=== PATIENT | female | born 1995 | race Hispanic/Latino ===

== ENCOUNTER → 2021-12-23 09:11 | Outpatient (CLI) | payer OTHER, MEDICAID, SELFPAY ==
[2021-12-23 10:26] LABS: Hematocrit 34.2 % (36-46); Hemoglobin 11.8 g/dL (12.0-16.0); Mean Corpuscular HGB Conc 34.5 % (30-36); Mean Corpuscular Hemoglobin 32.2 PG (26-34); Mean Corpuscular Volume 93.3 fL (80-100); Platelet Count 203 X10^3/uL (150-400); Red Blood Cell Count 3.67 X10^6/uL (4.0-5.2); Red Cell Distribution Width 12.5 % (11.6-14.8); White Blood Cell Count 9.6 X10^3/uL (4.5-11.0)
[2021-12-23 10:51] LABS: Glucose Fasting 84 mg/dL (70-100)
[2021-12-23 11:04] LABS: Glucose 1 Hour 87 mg/dL (70-170)
[2021-12-23 11:41] LABS: Glucose Tol Interpretation INTERPRETATION
[2021-12-23 12:15] LABS: Glucose 2 Hour 90 mg/dL (70-140)
[2022-06-20 06:56] LABS: Fractionated Inspired Oxygen 45; HCO3 ABG 19 mmol/L (22-26); Oxygen Saturation ABG 92 % (95-100); PCO2 ABG 33.8 mmHg (35-45); PO2 ABG 66 mmHg (80-100); TCO2 ABG 20 mmol/L (21-31); pH ABG 7.35 (7.35-7.45)
== END ==
PROVIDERS: PCP Internal Medicine; Referring Provider Nurse Practitioner Obstetrics & Gynecology; Visit Provider Nurse Practitioner Obstetrics & Gynecology
DX: Z34.90 Encounter for supervision of normal pregnancy, unspecified, unspecified trimester (principal); Z13.1 Encounter for screening for diabetes mellitus; Z3A.26 26 weeks gestation of pregnancy
CPT/HCPCS: 36415; 36600; 82805; 82951; 82952; 85027

== ENCOUNTER 2022-04-02 08:10 | Inpatient (IN) | payer OTHER, MEDICAID, SELFPAY ==
--- NOTE | 2022-04-02 08:53 | PM.OBHP.1 ---
OB HPI Date/Time Date of admission: 04/02/22 Date Patient Seen: 04/02/22 Time Patient Seen: 08:53 History of Present Condition Chief complaint: OBS OF LABOR : 1 Para: 0 Estimated Date of Delivery: 04/02/22 Estimated Gestational Age (weeks): 39.2 Narrative: MALIA MARCH is a 26 year old female @ [id number] by LMP and early US who presents for evaluation of labor. Awoke at 3am to a large gush of clear fluid which has continued to trickle. Contractions started shortly after and have steadily increased in frequency and intensity, now breathing through strong contractions every 3-6 minutes. +FM. No VB. Uncomplicated PN care w/ CNM. 4-5cm at last CE in office. Desires low intervention . Declines SL IV. Partner and mother, present and supportive. History of Present care: good care, initiated at week # (8), number of visits (10) and pounds weight gain Dating criteria: LMP confirmed by 1st trimester US Ultrasounds: normal mid trimester US Obstetrical complications: none Medical complications: none Preadmission Labs Blood type: O (+) positive -: Antibody screen: negative, GBS status: negative, HBsAG: negative, HIV: negative and RPR/VDLR: negative -: Chlamydia screen: not detected and Gonorrhea screen: not detected -: Rubella: immune and Varicella: immune HCT: 34.2 HCAB: reactive PAP: Normal Cell-free DNA: Negative, female Narrative: 2hr gtt: 84/87/90 Evaluation Evaluation Baseline heart rate: 120 Variability: Moderate (11-25) monitor accelerations: Present Monitor Decelerations: Absent Contraction Frequency (minutes): 2 Uterine Contraction Intensity: Strong/Firm Status: Category l Comments: CE deferred [facility] Surgical History (Updated 04/02/22 @ 10:26 by iMlla Engle CNM) History of repair of ACL Social History (Updated 04/02/22 @ 10:28 by Milla Engle CNM) marital status: unmarried,living together number of children: 0 household members: significant other lives independently: Yes caregiver/support person: No housing: house education level: college occupational status: employed Smoking Status: Never smoker Meds Home Medications and Allergies Home Medications Medication Instructions Recorded Confirmed Type albuterol sulfate 90 mcg/actuation inhalation 04/02/22 History aerosol inhaler Allergies Allergy/AdvReac Type Severity Reaction Status Date / Time cephalexin [From Keflex] AdvReac Verified 04/02/22 09:04 [email or web address] AdvReac Verified 04/02/22 09:05 Review of Systems Review of Systems ROS: Yes All systems reviewed with the patient and are negative except as otherwise documented OB Exam Resp Effort & Inspection: normal respiratory effort Auscultation: clear to auscultation bilaterally Cardio Rate: regular rate Rhythm: regular rhythm Heart Sounds: S1 normal and S2 normal Presentation: vertex Objective Labs Result Diagrams: 04/02/22 09:44 Assessment and Plan Assessment and Plan Assessment and Plan narrative: A: Term nullipara Active labor No indication for GBS prophylaxis Cat I FHR P: Admit, routine orders. May switch to IA. Labor support PRN. Reassess in 4 hours or sooner, PRN.
[2022-04-02 09:01] VITALS: BP 117/71
[2022-04-02 09:47] LABS: COVID19 -Nasal RAPID Negative (Negative)
[2022-04-02 10:02] LABS: Add Manual Diff / Slide Review NO; Basophils Absolute Auto 0 /uL (0-100); Basophils Percent Auto 0.3 % (0-2); Eosinophils Absolute Auto 0 /uL (0-450); Eosinophils Percent Auto 0.1 % (2-4); Hematocrit 36.9 % (36-46); Hemoglobin 12.2 g/dL (12.0-16.0); Lymphocytes Absolute Auto 900 /uL (1100-4500); Lymphocytes Percent Auto 5.6 % (25-40); Mean Corpuscular Hemoglobin 30.2 PG (26-34); Mean Corpuscular Volume 91.5 fL (80-100); Monocytes Absolute Auto 600 /uL (0-900); Monocytes Percent Auto 3.7 % (3-14); Neutrophils Absolute Auto 14800 /uL (1500-7000); Neutrophils Percent Auto 90.3 % (50-75); Platelet Count 204 X10^3/uL (150-400); Red Blood Cell Count 4.03 X10^6/uL (4.0-5.2); Red Cell Distribution Width 13.1 % (11.6-14.8); White Blood Cell Count 16.3 X10^3/uL (4.5-11.0)
--- NOTE | 2022-04-02 16:00 | PM.OBPNLAB ---
Date/Time Date Patient Seen: 04/02/22 Time Patient Seen: 16:00 Pain Control Pain control: other (NO2) Comments: Has been laboring in the tub and in the room in multiple positions. Using NO2 occasionally with moderate relief. Feeling rectal pressure with spontaneous urge to push. Good support, coping well. Pelvic Exam Dilation (cm): 9.5 Effacement (%): 100 station: 0 Amniotic membrane status: Ruptured (AROM forebag occurred at 1415) Contractions Monitor mode: Palpation Pitocin rate (mU/min): 0 Contraction frequency (min): 2 Contraction duration (min): 1 Contraction pattern: Regular Contraction intensity: Strong/Firm Status status: Category l Heart Rate Baseline: 115 Comments: Reassuring by IA Assessment and Plan Assessment: active labor Plan: continuous present management Comments: Continuous labor support. Beginning second stage.
[2022-04-02] MEDS: OXYTOCIN 10 UNIT/ML VIAL IM (17:35)
[2022-04-02] MEDS: LIDOCAINE 1% 20 ML (17:45)
--- NOTE | 2022-04-02 18:05 | P.PCNOB_ITS ---
Events: No Care Labor & Delivery Delivery date: 04/02/22 Intrapartal Events: None Cervical ripening method: none Induction method: none Delivery augmentation: rupture of membranes (AROM forebag) Delivery monitor: external FHT Route of delivery: Episiotomy description: None L&D Laceration Description: Perineal - 1st Degree Delivery repair: chromic (3.0) Quantitative Blood Loss: 100 Anesthesia Type: Other (NO2) Narrative: Farheen moved to the toilet and began to feel a stronger urge to push. Pushed in bed on her right then left side. FHR monitor continuously hand held by RN throughout most of second stage. NSVB of a vigorous baby boy in CESAR position, sommersaulted through a double tight nuchal cord, then unraveled a double body cord. was placed on maternal abdomen for drying and skin to skin. 10 units of pitocin was given IM for AMTSL. After cessation of pulsation, the cord was double clamped by CNM and cut by FOB. Cord blood sample was collected. Gentle cord traction and maternal push led to spontaneous, Schultze delivery of an apparently intact placenta, membranes and 3VC. Fundus massaged firm and bleeding light. Inspection revealed a 1st degree perineal laceration that was repaired with 3.0 Chromic, under 1% lidocaine local, in the usual fashion for good approximation and hemostasis. QBL 100mL. Both mother and baby stable and skin to skin as I left the room. [place] Baby 1: gender: Male Presentation: vertex Position: Right Occiput Anterior Placenta delivery description: Spontaneous Cord Vessel Description: 3 Vessels, Nuchal Cord (x2) and Around Body x2 score (1 min): 7 score (5 min): 8 weight: 3.372 kg Plan for aftercare: Routine care
[2022-04-02] MEDS: IBUPROFEN 600 MG TABLET PO (18:50)
[2022-04-02] MEDS: ACETAMINOPHEN 325 MG TABLET 650 MG PO (18:50)
[2022-04-02] MEDS: DERMOPLAST SPRAY 20% 60 ML 1 SPRAY TOP (19:08)
[2022-04-02] MEDS: OXYCODONE IR 5 MG TABLET PO (20:26)
[2022-04-03] MEDS: IBUPROFEN 600 MG TABLET PO ×3 (00:40→12:49)
[2022-04-03] MEDS: ACETAMINOPHEN 325 MG TABLET 650 MG PO ×3 (00:40→12:48)
[2022-04-03] MEDS: OXYCODONE IR 5 MG TABLET PO (03:09)
[2022-04-03] MEDS: DOCUSATE 100 MG CAPSULE PO (08:53)
--- NOTE | 2022-04-03 14:43 | PM.OBDS.1 ---
Discharge Providers Provider Date of admission: 04/02/22 08:10 Discharge Date: 04/03/22 Primary care physician: JULIÁN Garcia Consults: 04/03/22 17:59 Consult to Inspector Final Assembly Mechanical Routine Comment: Discharge provider: Milla Engle CNM Summary Hospital Course Date Patient Seen: 04/03/22 Time Patient Seen: 15:05 Diagnoses: O80.0 Hospital Course: PPD1 s/p NSVB with no lacerations. Voiding, ambulating and independently. Tolerating a general diet. Pain well controlled with PO medication. Vaginal bleeding is light, without clots. Partner remains present and supportive. They are both eager for discharge to home. Peripartum Data Infant Delivery Method: Natural Vaginal Laceration Description: None Episiotomy description: None [place] 1: Gender: Male Disposition of : home Discharge Diagnosis (1) Encounter for full-term uncomplicated delivery: Start Date: 04/02/22 Start Time: 17:32 Status: Acute Status at Discharge Cognitive/behavioral status at discharge: oriented and calm Functional status at discharge: independent ambulation Overall status at discharge: patient is progressing back to baseline Time Spent with Patient Time attestation: Total time spent providing and/or coordinating discharge services: Specific discharge activities: discharge teaching Objective Labs Result Diagrams: 04/02/22 09:44 Exam Vital Signs (past 8 hours): BP 112/62, HR 76bp, RR 16, T 97.5F Other: Fundus firm @ u-1, lochia scant, perineum intact Discharge Plan Discharge Plan Patient Disposition: Home Discharge orders & Medications Prescriptions: New ibuprofen 600 mg Tablet 600 mg PO Q6HR PRN (Reason: Pain, Mild (1-3)) 14 Days Qty: 60 0RF Continued albuterol sulfate [ProAir HFA] 90 mcg/actuation HFA aerosol inhaler 1 puff inhalation PRN PRN (Reason: Wheezing) Label Comments: inhale 2 puffs by mouth every 4 to 6 hours if needed FOR ASTHMA Follow up/Referrals: Jaimee Pool ARNP [Primary Care Provider] - Milla Engle CNM [[facility]] - (Follow-up 04/16/22 @ 1245 by Telehealth Follow-up 05/14/22 @ 1245 in office) Diet/Activity/Treatments Diet: Diet as Tolerated and Regular Activity: pelvic rest x 6 weeks Skin/Wound/Dressing Care Report to your healthcare provider any signs of infection, such as:: chills, fever, increased pain, unusual drainage and unusual redness Visit Report/Discharge Packet Instructions: DI for Depression Discharge Data Primary Care Provider: Jaimee Pool Attending Provider: Milla Engle
[2022-04-03 15:23] VITALS: BP 112/62; PULSE 79; RESP 18; TEMP 36.4
== END 2022-04-03 16:48 | disposition home or self-care (01) | DRG 560 ==
PROVIDERS: Admitting Provider Nurse Practitioner Obstetrics & Gynecology; PCP Internal Medicine; Referring Provider Nurse Practitioner Obstetrics & Gynecology; Visit Provider Nurse Practitioner Obstetrics & Gynecology
DX: O70.0 First degree perineal laceration during delivery (principal); Z3A.39 39 weeks gestation of pregnancy; Z37.0 Single live birth; O69.1XX0 Labor and delivery complicated by cord around neck, with compression, not applicable or unspecified; Z20.822 Contact with and (suspected) exposure to COVID-19
CPT/HCPCS: 36415; 59050; 85025; 86850; 86900; 86901; 87635; C9803; G0378; G0379; J2590

== ENCOUNTER 2022-06-19 21:55 | Observation (INO) | payer OTHER, MEDICAID, SELFPAY ==
[2022-06-19 22:04] VITALS: BP 112/75; PULSE 108; RESP 17; TEMP 37.1; O2SAT 95; BMI 28.3
--- NOTE | 2022-06-19 22:10 | PC.NURSE ---
RT to bedside - assessment performed
[2022-06-19] MEDS: ALBUTEROL/IPRATROPIUM 3 ML AMPUL INH ×2 (22:15→22:21)
[2022-06-19 22:37] VITALS: PULSE 116; O2SAT 97
--- NOTE | 2022-06-19 22:55 | PC.NURSE ---
RT at bedside
[2022-06-19] MEDS: ALBUTEROL 2.5 MG/3 ML NEB (ADULT) INH ×2 (22:58→23:31)
[2022-06-19 22:59] VITALS: PULSE 89; O2SAT 90
[2022-06-19 23:00] VITALS: BP 120/76
--- NOTE | 2022-06-19 23:00 | PC.NURSE ---
IV started with lab draw - tolerated well
--- NOTE | 2022-06-19 23:05 | PC.NURSE ---
respiratory panel swab performed to bilateral nares
[2022-06-19 23:06] VITALS: PULSE 119; O2SAT 81
[2022-06-19] MEDS: methylPREDNISolone 125 MG/2 ML VIAL IV (23:15)
[2022-06-19] MEDS: SODIUM CHLORIDE 0.9% 1,000 ML 1000 ML IV (23:15)
[2022-06-19 23:21] LABS: Add Manual Diff / Slide Review NO; Basophils Absolute Auto 0 /uL (0-100); Basophils Percent Auto 0.4 % (0-2); Eosinophils Absolute Auto 400 /uL (0-450); Eosinophils Percent Auto 5.3 % (2-4); Hematocrit 38.6 % (36-46); Lymphocytes Absolute Auto 1300 /uL (1100-4500); Lymphocytes Percent Auto 16.4 % (25-40); Mean Corpuscular HGB Conc 33.8 % (30-36); Mean Corpuscular Hemoglobin 30.6 PG (26-34); Mean Corpuscular Volume 90.5 fL (80-100); Monocytes Absolute Auto 800 /uL (0-900); Monocytes Percent Auto 10.1 % (3-14); Neutrophils Absolute Auto 5300 /uL (1500-7000); Neutrophils Percent Auto 67.8 % (50-75); Platelet Count 266 X10^3/uL (150-400); Red Blood Cell Count 4.26 X10^6/uL (4.0-5.2); Red Cell Distribution Width 13.5 % (11.6-14.8); White Blood Cell Count 7.8 X10^3/uL (4.5-11.0)
[2022-06-19 23:30] VITALS: BP 114/80; PULSE 107; O2SAT 99
--- NOTE | 2022-06-19 23:30 | PC.NURSE ---
RT at bedside
[2022-06-19 23:31] LABS: Alanine Aminotransferase 36 IU/L (<35); Albumin 4.6 g/dL (3.5-5.0); Albumin Globulin Ratio 1.2 (1.0-2.8); Alkaline Phosphatase 65 U/L (38-126); Aspartate Aminotransferase 28 IU/L (14-36); BUN Creatinine Ratio 14.7 (6-22); Bilirubin Total 0.5 mg/dL (0.2-1.3); Blood Urea Nitrogen 10 mg/dL (7-17); Calcium 9.2 mg/dL (8.4-10.2); Carbon Dioxide 24 mmol/L (22-32); Chloride 105 mmol/L (98-107); Estimated Glomerular Filt Rate > 60 mL/min (>60); Globulin 3.8 g/dL (1.7-4.1); Glucose 137 mg/dL (70-100); HEMOLYSIS 39 (0-50); Potassium 3.4 mmol/L (3.4-5.1); Sodium 140 mmol/L (137-145); Total Protein 8.4 g/dL (6.3-8.2)
[2022-06-19 23:31] LABS: COVID19 -Nasal RAPID Negative (Negative)
[2022-06-20] VITALS (58 sets, daily range): BP systolic 101–159; BP diastolic 60–103; PULSE 89–136; RESP 12–58; TEMP 36.5–36.9; O2SAT 74–100; BMI 28.3
--- NOTE | 2022-06-20 | PC.NURSE ---
Resting quietly - calm - respirations equal and unlabored bilaterally - PWD - alert and oriented - speaking in full clear sentences
--- NOTE | 2022-06-20 00:34 | PC.NURSE ---
Ambulatory to the bathroom with steady gait
--- NOTE | 2022-06-20 00:37 | PC.NURSE ---
Pt returns to the room and starts crying - starts to become panicky and states that she needs air - audible wheezing noted - coached to sit and try pursed lip breathing - helps to calm patient - O2 sat improves from 92-98% on room air - RT called for evaluation
--- NOTE | 2022-06-20 00:51 | DI.RAD.S_ITS ---
PROCEDURE: XR CHEST 1V INDICATIONS: short of breath TECHNIQUE: One view of the chest was acquired. COMPARISON: [facility], , XR CHEST 1 VIEW, 12/06/2020, 22:15. FINDINGS: Surgical changes and devices: None. Lungs and pleura: Lungs are clear. No pleural effusions or pneumothorax. Mediastinum: Mediastinal contours appear normal. Heart size is normal. Bones and chest wall: No suspicious bony lesions. Overlying soft tissues appear unremarkable. IMPRESSION: Normal for age, source of current shortness of breath symptoms is not seen. Dictated by: Mal Santillan M.D. on 06/20/2022 at 1:08 Approved by: Mal Santillan M.D. on 06/20/2022 at 1:09
--- NOTE | 2022-06-20 00:55 | PC.NURSE ---
XR at bedside
--- NOTE | 2022-06-20 01:30 | PC.NURSE ---
Resting quietly with family at bedside - nursing baby without concern - no needs voiced - respirations equal and unlabored bilaterally
[2022-06-20 01:36] LABS: Influenza A - CEPHEID Flu A NEGATIVE (NEGATIVE); Influenza B - CEPHEID Flu B NEGATIVE (NEGATIVE); Respiratory Syncytial Virus Negative (Negative)
[2022-06-20 01:41] LABS: COVID-19 CEPHEID 4-PLEX PCR Negative (Negative)
--- NOTE | 2022-06-20 02:00 | PC.NURSE ---
Family approaches the RN and states that the patient feels as though she is having increasing difficulty breathing again - MD aware
--- NOTE | 2022-06-20 02:01 | ED.SOB ---
HPI - SOB/Dyspnea General Chief Complaint: Shortness of Breath/Dyspnea Stated Complaint: Asthma Time Seen by Provider: 06/19/22 22:14 Source: patient Mode of arrival: Ambulatory History of Present Illness HPI Narrative: Patient is a 27-year-old female history of asthma, no prior intubations presenting today with increasing shortness of breath. She said she was doing okay yesterday she took 2 albuterol nebulizers at prior to arrival still feels like she is tight and short of breath. Denies fever chills or cough. Currently 2 months and . Related Data Home Medications Medication Instructions Recorded Confirmed albuterol sulfate 90 mcg/actuation 1 puff inhalation PRN PRN Wheezing 04/02/22 04/03/22 aerosol inhaler (ProAir HFA) Allergies Allergy/AdvReac Type Severity Reaction Status Date / Time cephalexin [From Keflex] AdvReac Verified 06/19/22 22:04 kiwi AdvReac Verified 06/19/22 22:04 Review of Systems Review of Systems Narrative: GENERAL: Denies chills, fatigue, malaise, fever, sweats, travel HEENT: Denies sinus pain, ear pain, sore throat, difficulty swallowing, neck pain RESPIRATORY: See HPI CARDIOVASCULAR: Denies chest pain, palpitations, orthopnea, edema GASTROINTESTINAL: Denies nausea, vomiting, abdominal pain, diarrhea, constipation, melena. : Denies dysuria, frequency, incontinence, hematuria, urinary retention, flank pain. MUSCULOSKELETAL: Denies weakness, joint pain, or bony pain SKIN: No rash, no erythema, no pruritus NEUROLOGIC: Denies weakness, dizziness, headache, numbness, change in speech, confusion PSYCHIATRIC: No concerning psychosocial issues. 12 point review of systems is negative except for those stated above and HPI Patient History Surgical History History of repair of ACL Social History marital status: unmarried,living together number of children: 0 household members: significant other lives independently: Yes caregiver/support person: No housing: house education level: college occupational status: employed Smoking Status: Never smoker Smoking Status: Never smoker Substance Use Type: does not use Exam Initial Vital Signs Initial Vital Signs: Vital Signs Temperature 98.7 F 06/19/22 22:04 Pulse Rate 108 H 06/19/22 22:04 Respiratory Rate 17 06/19/22 22:04 Blood Pressure 112/75 06/19/22 22:04 Pulse Oximetry 95 06/19/22 22:04 Oxygen Delivery Method 06/19/22 22:04 GENERAL: Alert 27-year-old female and in no acute distress. HEENT: Head atraumatic,EOMI, pupils reactive, face symmetric, moist mucous membranes CARDIOVASCULAR: Regular rate and rhythm without murmurs, rubs or gallops. RESPIRATORY: Speaks in full sentences wheezing bilaterally ABDOMEN: Soft, nontender. Normoactive bowel sounds all 4 quadrants. No guarding or rebound EXTREMITIES: Normal range of motion, no clubbing or edema. Neurovascularly intact NEUROLOGICAL: Alert and oriented x4.Normal gait and speech. SKIN: Warm, dry, no laceration, no petechiae, no rashes or lesions. Course Orders Ordered: ED Orders 06/19/22 23:00 CBC Auto Diff [Complete Blood Count AUTO DIFF] Stat CMP [Comprehensive Metabolic Panel] Stat 06/19/22 23:05 Covid-19 + FLU A/B + RSV - PCR Stat 06/20/22 00:51 Chest [XR chest 1V] Stat 06/20/22 02:48 BNP [NT-proBNP (BNP-Adult 18+)] Stat Magnesium Stat Procalcitonin Stat Troponin & CK Cardiac Panel Stat 06/20/22 04:05 D Dimer Stat 06/20/22 04:24 ABG [Arterial Blood Gas] Stat 06/20/22 04:45 Test Serum,Qual Stat 06/20/22 04:46 CT angio chest PE protocol Stat Discontinued Medications Albuterol (Albuterol 2.5 Mg/3 Ml Neb (Adult)) 2.5 mg INH NOW ONE Stop: 06/19/22 22:58 Last Admin: 06/19/22 22:58 Dose: 2.5 mg Documented By: KAN Albuterol (Albuterol 2.5 Mg/3 Ml Neb (Adult)) 2.5 mg INH NOW ONE Stop: 06/19/22 23:31 Last Admin: 06/19/22 23:31 Dose: 2.5 mg Documented By: KAN Albuterol (Albuterol 2.5 Mg/3 Ml Neb (Adult)) 20 mg INH NOW ONE Stop: 06/20/22 02:02 Last Admin: 06/20/22 02:25 Dose: 20 mg Documented By: KAN Albuterol (Albuterol 2.5 Mg/3 Ml Neb (Adult)) 2.5 mg INH NOW ONE Stop: 06/20/22 06:32 Last Admin: 06/20/22 06:35 Dose: 2.5 mg Documented By: KAN Albuterol/Ipratropium (Albuterol/Ipratropium 3 Ml Ampul) 3 ml INH NOW ONE Stop: 06/19/22 22:13 Last Admin: 06/19/22 22:15 Dose: 3 ml Documented By: AKN Albuterol/Ipratropium (Albuterol/Ipratropium 3 Ml Ampul) 3 ml INH NOW ONE Stop: 06/19/22 22:19 Last Admin: 06/19/22 22:21 Dose: 3 ml Documented By: KAN Sodium Chloride (Normal Saline 0.9%) 1,000 mls @ 1,000 mls/hr IV BOLUS ONE Stop: 06/20/22 00:02 Last Infusion: 06/20/22 00:15 Dose: 0 mls/hr Documented By: Admin: 06/19/22 23:15 Dose: 1,000 mls/hr Documented By: MAREK Sodium Chloride (Normal Saline 0.9%) 1,000 mls @ 1,000 mls/hr IV BOLUS ONE Stop: 06/20/22 03:00 Last Infusion: 06/20/22 03:46 Dose: 0 mls/hr Documented By: Admin: 06/20/22 02:46 Dose: 1,000 mls/hr Documented By: MAREK Magnesium Sulfate (Magnesium Sulfate) 2 gm in 50 mls @ 150 mls/hr IV NOW ONE Stop: 06/20/22 04:33 Last Infusion: 06/20/22 05:05 Dose: 0 mls/hr Documented By: MAREK Co-signed By: CHERYL Admin: 06/20/22 04:29 Dose: 150 mls/hr Documented By: MAREK Co-signed By: CHERYL Lorazepam (Lorazepam 2 Mg/Ml Inj) 0.5 mg IV NOW ONE Stop: 06/20/22 03:50 Last Admin: 06/20/22 03:55 Dose: 0.5 mg Documented By: MAREK Methylprednisolone (Methylprednisolone 125 Mg/2 Ml Vial) 125 mg IV NOW ONE Stop: 06/19/22 23:04 Last Admin: 06/19/22 23:15 Dose: 125 mg Documented By: MAREK Vital Signs Vital signs: Vital Signs - 8 hr 06/19/22 23:30 06/19/22 23:30 06/20/22 00:00 Pulse Rate 107 H 116 H Blood Pressure 114/80 Pulse Oximetry 99 94 Oxygen Delivery Method Oxygen Flow Rate Fraction of Inspired Oxygen 06/20/22 00:30 06/20/22 01:00 06/20/22 01:30 Pulse Rate 89 118 H Blood Pressure Pulse Oximetry 95 74 L 95 Oxygen Delivery Method Oxygen Flow Rate Fraction of Inspired Oxygen 06/20/22 02:00 06/20/22 02:30 06/20/22 05:14 Pulse Rate 116 H 118 H Blood Pressure Pulse Oximetry 91 98 97 Oxygen Delivery Method High Flow Nasal Cannula Oxygen Flow Rate 50 Fraction of Inspired Oxygen 75 06/20/22 03:00 06/20/22 03:30 06/20/22 04:00 Pulse Rate 136 H 124 H 124 H Blood Pressure Pulse Oximetry 99 94 91 Oxygen Delivery Method Oxygen Flow Rate Fraction of Inspired Oxygen 06/20/22 04:30 06/20/22 05:06 06/20/22 05:10 Pulse Rate 104 H 132 H Blood Pressure 135/65 Pulse Oximetry 93 91 Oxygen Delivery Method Oxygen Flow Rate Fraction of Inspired Oxygen 06/20/22 05:10 06/20/22 05:30 06/20/22 05:30 Pulse Rate 123 H 125 H Blood Pressure 145/76 H Pulse Oximetry 96 97 Oxygen Delivery Method Oxygen Flow Rate Fraction of Inspired Oxygen 06/20/22 06:00 06/20/22 06:01 06/20/22 06:01 Pulse Rate 124 H 118 H Blood Pressure 130/103 H Pulse Oximetry 98 97 Oxygen Delivery Method Oxygen Flow Rate Fraction of Inspired Oxygen 06/20/22 06:30 06/20/22 06:30 Pulse Rate 125 H Blood Pressure 143/84 H Pulse Oximetry 97 Oxygen Delivery Method Oxygen Flow Rate Fraction of Inspired Oxygen MDM - SOB/Dyspnea Lab Data Result diagrams: 06/19/22 23:00 06/19/22 23:00 Labs: Lab Results 06/19/22 06/19/22 06/19/22 Range/Units 22:10 23:00 23:00 WBC 7.8 (4.5-11.0) X10^3/uL RBC 4.26 (4.0-5.2) X10^6/uL Hgb 13.0 (12.0-16.0) g/dL Hct 38.6 (36-46) % MCV 90.5 (80-100) fL MCH 30.6 (26-34) PG MCHC 33.8 (30-36) % RDW 13.5 (11.6-14.8) % Plt Count 266 (150-400) X10^3/uL Neut % (Auto) 67.8 (50-75) % Lymph % (Auto) 16.4 L (25-40) % [place] % (Auto) 10.1 (3-14) % Eos % (Auto) 5.3 H (2-4) % Baso % (Auto) 0.4 (0-2) % Neut # (Auto) 5300 (0647-3233) /uL Lymph # (Auto) 1300 (0179-9272) /uL [place] # (Auto) 800 (0-900) /uL Eos # (Auto) 400 (0-450) /uL Baso # (Auto) 0 (0-100) /uL D-Dimer (<500) ng/ml Sodium 140 (137-145) mmol/L Potassium 3.4 (3.4-5.1) mmol/L Chloride 105 (98-107) mmol/L Carbon Dioxide 24 (22-32) mmol/L BUN 10 (7-17) mg/dL Creatinine 0.68 (0.52-1.04) mg/dL Estimated GFR > 60 (>60) mL/min BUN/Creatinine Ratio 14.7 (6-22) Glucose 137 H (70-100) mg/dL Calcium 9.2 (8.4-10.2) mg/dL Magnesium (1.6-2.3) mg/dL Total Bilirubin 0.5 (0.2-1.3) mg/dL AST 28 (14-36) IU/L ALT 36 H (<35) IU/L Alkaline Phosphatase 65 (38-126) U/L Total Creatine Kinase (30-135) U/L CK-MB (CK-2) (<2.37) ng/mL CK-MB (CK-2) Rel Index (1.5-5.0) % Troponin I (0.01-0.034) ng/mL NT-Pro-B Natriuret Pep (<125) pg/mL Total Protein 8.4 H (6.3-8.2) g/dL Albumin 4.6 (3.5-5.0) g/dL Globulin 3.8 (1.7-4.1) g/dL Albumin/Globulin Ratio 1.2 (1.0-2.8) Procalcitonin (<0.5) ng/mL Serum , Qual (Negative) SARS-CoV-2 (PCR) Negative (Negative) Influenza A (RT-PCR) (NEGATIVE) Influenza B (RT-PCR) (NEGATIVE) RSV (PCR) (Negative) 06/19/22 06/19/22 06/20/22 Range/Units 23:00 23:05 02:48 WBC (4.5-11.0) X10^3/uL RBC (4.0-5.2) X10^6/uL Hgb (12.0-16.0) g/dL Hct (36-46) % MCV (80-100) fL MCH (26-34) PG MCHC (30-36) % RDW (11.6-14.8) % Plt Count (150-400) X10^3/uL Neut % (Auto) (50-75) % Lymph % (Auto) (25-40) % [place] % (Auto) (3-14) % Eos % (Auto) (2-4) % Baso % (Auto) (0-2) % Neut # (Auto) (1891-8126) /uL Lymph # (Auto) (3835-9194) /uL [place] # (Auto) (0-900) /uL Eos # (Auto) (0-450) /uL Baso # (Auto) (0-100) /uL D-Dimer (<500) ng/ml Sodium (137-145) mmol/L Potassium (3.4-5.1) mmol/L Chloride (98-107) mmol/L Carbon Dioxide (22-32) mmol/L BUN (7-17) mg/dL Creatinine (0.52-1.04) mg/dL Estimated GFR (>60) mL/min BUN/Creatinine Ratio (6-22) Glucose (70-100) mg/dL Calcium (8.4-10.2) mg/dL Magnesium (1.6-2.3) mg/dL Total Bilirubin (0.2-1.3) mg/dL AST (14-36) IU/L ALT (<35) IU/L Alkaline Phosphatase (38-126) U/L Total Creatine Kinase 113 (30-135) U/L CK-MB (CK-2) 0.93 (<2.37) ng/mL CK-MB (CK-2) Rel Index 0.8 L (1.5-5.0) % Troponin I < 0.012 (0.01-0.034) ng/mL NT-Pro-B Natriuret Pep 26 (<125) pg/mL Total Protein (6.3-8.2) g/dL Albumin (3.5-5.0) g/dL Globulin (1.7-4.1) g/dL Albumin/Globulin Ratio (1.0-2.8) Procalcitonin (<0.5) ng/mL Serum , Qual Negative (Negative) SARS-CoV-2 (PCR) Negative (Negative) Influenza A (RT-PCR) Flu a negative (NEGATIVE) Influenza B (RT-PCR) Flu b negative (NEGATIVE) RSV (PCR) Negative (Negative) 06/20/22 06/20/22 06/20/22 Range/Units 02:48 02:48 04:05 WBC (4.5-11.0) X10^3/uL RBC (4.0-5.2) X10^6/uL Hgb (12.0-16.0) g/dL Hct (36-46) % MCV (80-100) fL MCH (26-34) PG MCHC (30-36) % RDW (11.6-14.8) % Plt Count (150-400) X10^3/uL Neut % (Auto) (50-75) % Lymph % (Auto) (25-40) % [place] % (Auto) (3-14) % Eos % (Auto) (2-4) % Baso % (Auto) (0-2) % Neut # (Auto) (9318-5093) /uL Lymph # (Auto) (4429-8461) /uL [place] # (Auto) (0-900) /uL Eos # (Auto) (0-450) /uL Baso # (Auto) (0-100) /uL D-Dimer 964 H (<500) ng/ml Sodium (137-145) mmol/L Potassium (3.4-5.1) mmol/L Chloride (98-107) mmol/L Carbon Dioxide (22-32) mmol/L BUN (7-17) mg/dL Creatinine (0.52-1.04) mg/dL Estimated GFR (>60) mL/min BUN/Creatinine Ratio (6-22) Glucose (70-100) mg/dL Calcium (8.4-10.2) mg/dL Magnesium 1.8 (1.6-2.3) mg/dL Total Bilirubin (0.2-1.3) mg/dL AST (14-36) IU/L ALT (<35) IU/L Alkaline Phosphatase (38-126) U/L Total Creatine Kinase (30-135) U/L CK-MB (CK-2) (<2.37) ng/mL CK-MB (CK-2) Rel Index (1.5-5.0) % Troponin I (0.01-0.034) ng/mL NT-Pro-B Natriuret Pep (<125) pg/mL Total Protein (6.3-8.2) g/dL Albumin (3.5-5.0) g/dL Globulin (1.7-4.1) g/dL Albumin/Globulin Ratio (1.0-2.8) Procalcitonin 0.04 (<0.5) ng/mL Serum , Qual (Negative) SARS-CoV-2 (PCR) (Negative) Influenza A (RT-PCR) (NEGATIVE) Influenza B (RT-PCR) (NEGATIVE) RSV (PCR) (Negative) Imaging Data Chest x-ray: Radiologist's Impression: Signed Patient: Farheen Cardenas MR#: [id number] : 1995 Acct:[id number] Age/Sex: 27 / F Date of Service: 06/20/22 Loc: ED Accession Number: [id number] ?? Procedure: XR chest 1V Ordering Provider: Fatou Ramires D.O. PROCEDURE:? XR CHEST 1V ? INDICATIONS:? short of breath ? TECHNIQUE:? One view of the chest was acquired.? ? COMPARISON:? [facility], CR, XR CHEST 1 VIEW, 12/06/2020, 22:15. ? FINDINGS:? ? Surgical changes and devices:? None.? ? Lungs and pleura:? Lungs are clear.? No pleural effusions or pneumothorax.? ? Mediastinum:? Mediastinal contours appear normal.? Heart size is normal.? ? Bones and chest wall:? No suspicious bony lesions.? Overlying soft tissues appear unremarkable.? ? IMPRESSION:? Normal for age, source of current shortness of breath symptoms is not seen. ? ? Dictated by: Mal Santillan M.D. on 06/20/2022 at 1:08 ? ? CT scan - chest: Radiologist's Impression: Pulmonary report unremarkable CT angiogram no acute intrathoracic abnormality identified MDM Narrative Medical decision making narrative: Patient initially responded to albuterol still mildly tachy and wheezing but moving air. She appears the restroom she got very wheezy short of breath and felt tight again. She is given full 20 mg nebulizer of albuterol she had very clear lungs tachycardic which is to be expected after albuterol. She got up to use the restroom again and again felt extremely tight short of breath anxious. Will sitting in bed her oxygen decreased the 85% on room air. It did not significantly improve in till she was put on 5-6 L of nasal cannula. D-dimer is pending. Troponin BNP negative chest x-ray is negative. CT scan is negative for PE. She is placed on high-flow. Started having some wheezing again. Dr. Chand updated patient's symptoms test results and accept patient to the ICU. May require BiPAP Discharge Plan Departure Patient Disposition: Admitted As Inpatient Clinical Impression: Asthma exacerbation Admit Date/Time: 06/20/22 06:35 Admit Provider: Emily Brown
--- NOTE | 2022-06-20 02:20 | PC.NURSE ---
RT at bedside
[2022-06-20] MEDS: ALBUTEROL 2.5 MG/3 ML NEB (ADULT) 20 MG INH ×2 (02:25→11:20)
--- NOTE | 2022-06-20 02:45 | PC.NURSE ---
lab draw performed at this time - tolerated well
[2022-06-20] MEDS: SODIUM CHLORIDE 0.9% 1,000 ML 1000 ML IV (02:46)
--- NOTE | 2022-06-20 02:53 | PC.NURSE ---
Ambulatory to the bathroom with steady gait - states that she feels as though her breathing gets much worse after she moves around - reassured
[2022-06-20 03:15] LABS: Creatine Kinase 113 U/L (30-135)
[2022-06-20 03:28] LABS: NT-proBNP (BNP-Adult 18+) 26 pg/mL (<125); Troponin I < 0.012 ng/mL (0.01-0.034)
[2022-06-20 03:30] LABS: CKMB % Relative Index 0.8 % (1.5-5.0); Creatine Kinase MB 0.93 ng/mL (<2.37)
--- NOTE | 2022-06-20 03:30 | PC.NURSE ---
Pt states that she doesn't feel well - increased work of breathing noted - states that she knows her body and something isn't right - appears anxious - O2 sats on room air = 93% - MD aware of pt's status
[2022-06-20] MEDS: LORazepam 2 MG/ML INJ 0.5 MG IV ×3 (03:55→23:11)
--- NOTE | 2022-06-20 03:55 | PC.NURSE ---
Given ativan at this time - discussed with patient - states that she would like to try it as she has been breathing hard for awhile and is getting tired - also hoping to help with some of the anxiety
--- NOTE | 2022-06-20 04:10 | PC.NURSE ---
pt noted to have increased work of breathing - difficulty saying words - O2 sats decrease to 87% on room air - MD at bedside - pt placed on 2L NC - no improvement noted - O2 sat remains at 88%
--- NOTE | 2022-06-20 04:20 | PC.NURSE ---
O2 increased in increments to 6L NC - encouraged to purse lip breathe with slow inhalations and exhalations - able to follow and slow breathing with continued coaching - returns to rapid shallow breathing if not coached. O2 sat not improving past 92% on the 6L
[2022-06-20 04:28] LABS: Magnesium 1.8 mg/dL (1.6-2.3)
[2022-06-20] MEDS: MAGNESIUM SULFATE 2 GM/50 ML PIGGYBACK IV (04:29)
--- NOTE | 2022-06-20 04:35 | PC.NURSE ---
RT at bedside for ABG - tolerated well - family to go home for the evening
--- NOTE | 2022-06-20 04:40 | PC.NURSE ---
placed on high flow O2 at this time by RT - having a difficult time tolerating it - states that it makes her feel as though she is unable to breathe - encouraged to keep the O2 on as it will help
--- NOTE | 2022-06-20 04:45 | PC.NURSE ---
To CT via W/C with RN - pt using NRB - color improves to pink and breathing slowed at this time
--- NOTE | 2022-06-20 04:46 | DI.CT.S_ITS ---
PROCEDURE: CT ANGIO CHEST PE PROTOCOL INDICATIONS: hypoxic TECHNIQUE: After the administration of intravenous contrast, 2 mm thick sections acquired from the pulmonary apices to the posterior costophrenic angles. 3-dimensional maximum intensity projection (MIP) coronal and sagittal reformats were then acquired through the thorax. For radiation dose reduction, the following was used: automated exposure control, adjustment of mA and/or kV according to patient size. COMPARISON: None. FINDINGS: Image quality: Excellent. Pulmonary arteries: Pulmonary arteries are normal in size, and demonstrate no intraluminal filling defects to suggest central pulmonary embolism. Lungs and pleura: Lungs are clear. No pleural effusions or pneumothorax. Central airways are patent. Bilateral upper and lower bronchial wall thickening with scattered areas partial airway occlusion. Mediastinum: Heart size is normal, without pericardial effusion. No mediastinal or hilar adenopathy. Thoracic aorta is normal in caliber and enhancement. Esophagus is normal in caliber, without hiatal hernia. Bones and chest wall: No suspicious bony lesions. Ribs and thoracic spine appear intact throughout. Thyroid gland is normal. No axillary or supraclavicular adenopathy. Abdomen: Visualized upper abdominal solid organs appear normal in the early arterial phase of enhancement. IMPRESSION: 1. No pulmonary embolus. 2. Bronchial wall thickening suggesting bronchitis or asthma. 3. Final interpretation is concordant with preliminary report. Dictated by: Marylin Hernandez M.D. on 06/20/2022 at 6:44 Approved by: Marylin Hernandez M.D. on 06/20/2022 at 6:49
[2022-06-20 04:51] LABS: D Dimer 964 ng/ml (<500)
[2022-06-20 04:57] LABS: Pregnancy Test Serum,Qual Negative (Negative)
--- NOTE | 2022-06-20 05:00 | PC.NURSE ---
Returns to the ER room via W/C with RN from CT - breathing improving - placed back on high flow - O2 sats increased to 97%
--- NOTE | 2022-06-20 05:20 | PC.NURSE ---
MD at bedside - pt much calmer and work of breathing improved - PWD
--- NOTE | 2022-06-20 05:30 | PC.NURSE ---
Continues to improve on high flow - tolerating well at this time
--- NOTE | 2022-06-20 05:44 | PC.NURSE ---
Awaiting admission - continues to improve - appears more comfortable and relaxed
--- NOTE | 2022-06-20 06:00 | PC.NURSE ---
MD at bedside to speak with patient and Mom - updated on status
--- NOTE | 2022-06-20 06:30 | PC.NURSE ---
RT at bedside - Mom present
[2022-06-20] MEDS: ALBUTEROL 2.5 MG/3 ML NEB (ADULT) INH ×6 (06:35→23:04)
[2022-06-20 07:05] LABS: Procalcitonin 0.04 ng/mL (<0.5)
--- NOTE | 2022-06-20 07:05 | PC.NURSE ---
Report called to OLGA Liu - pt to be transferred after [id number]
--- NOTE | 2022-06-20 07:16 | PC.NURSE ---
Report to OLGA Greer to take patient to the floor after shift change
--- NOTE | 2022-06-20 07:58 | PC.NURSE ---
pt c/o worsening SOB. states having difficulty expiring air. pt on High flow O2. given a 100% flush. posterior upper lobes sound wheezy however pt is moving air. 98% with good waveworm. HR remains 120's after multiple nebulizers. Pt pending transfer to ICU shortly.
--- NOTE | 2022-06-20 08:17 | PC.NURSE ---
pt receiving neb treatment. transferred upstairs with OLGA Greer and RT Ike to ICU. remains 98-100% on treatment. will return to [facility] post treatment.
--- NOTE | 2022-06-20 08:47 | RT ---
PT TRANSFERRED FROM ED TO ICU ON NRB. PT PLACED BACK ON HHFNC. SETTINGS ADJUSTED TO PT'S NEED. TELE-DOC UPDATED. PT RECEIVED NEB BY RN IN ED PRIOR TO TRANSFER.
--- NOTE | 2022-06-20 09:09 | PM.HP.1 ---
History of Present Illness History of Present Illness Date Patient Seen: 06/20/22 Chief complaint: Asthma Narrative: Pt is a 27yo woman with asthma, 2 months after uncomplicated , who presented with wheezing and SOB. The pt reports that she started to have wheezing and SOB around 2 weeks ago. It is unclear if she saw her PCP at that time. It improved slightly, and then around 2-3 days ago began to worsen again. She states that she tried 2 nebulizer treatments at home without significant relief. She came to the ED when she was feeling more acutely SOB. She does state that when the wheezing worsens she gets a cough. She denies any recent nasal congestion, sore throat, ear pain, or other viral symptoms. She has a history of significant seasonal allergies as a child, but has not had any allergy symptoms recently. The pts asthma was diagnosed around 4 years ago. She has never been intubated. She reports that she has come the ED a few times for treatments, but has never needed oxygen support in the past. She denies any recent chest pain. PMH: , s/p Asthma Social Hx: Lives at home with her FiJohnathon hightower, and son Luis Daniel. 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 No tobacco, recreational drug, alcohol use. Her fiances vapes but not around the patient. Patient History Surgical History History of repair of ACL Family & Social History Social History: household members significant other lives independently Yes caregiver/support person No Safety & Behavioral: Feels Safe in Current Yes Environment Tobacco & Substance use: Smoking Status Never smoker Substance Use Type does not use Meds Home Medications and Allergies Home Medications Medication Instructions Recorded Confirmed Type albuterol sulfate 90 mcg/actuation 1 puff inhalation PRN PRN Wheezing 04/02/22 06/20/22 History aerosol inhaler (ProAir HFA) Allergies Allergy/AdvReac Type Severity Reaction Status Date / Time cephalexin [From Keflex] AdvReac Verified 06/19/22 22:04 kiwi AdvReac Verified 06/19/22 22:04 Exam Vital Signs (past 8 hours): - 06/20/22 01:30 06/20/22 02:00 06/20/22 02:30 Pulse Rate 118 H 116 H 118 H Respiratory Rate Blood Pressure Pulse Oximetry 95 91 98 Oxygen Delivery Method Oxygen Flow Rate Fraction of Inspired Oxygen 06/20/22 05:14 06/20/22 03:00 06/20/22 03:30 Pulse Rate 136 H 124 H Respiratory Rate Blood Pressure Pulse Oximetry 97 99 94 Oxygen Delivery Method High Flow Nasal Cannula Oxygen Flow Rate 50 Fraction of Inspired Oxygen 75 06/20/22 04:00 06/20/22 04:30 06/20/22 05:06 Pulse Rate 124 H 104 H 132 H Respiratory Rate Blood Pressure Pulse Oximetry 91 93 91 Oxygen Delivery Method Oxygen Flow Rate Fraction of Inspired Oxygen 06/20/22 05:10 06/20/22 05:10 06/20/22 05:30 Pulse Rate 123 H Respiratory Rate Blood Pressure 135/65 145/76 H Pulse Oximetry 96 Oxygen Delivery Method Oxygen Flow Rate Fraction of Inspired Oxygen 06/20/22 05:30 06/20/22 06:00 06/20/22 06:01 Pulse Rate 125 H 124 H 118 H Respiratory Rate Blood Pressure Pulse Oximetry 97 98 97 Oxygen Delivery Method Oxygen Flow Rate Fraction of Inspired Oxygen 06/20/22 06:01 06/20/22 06:30 06/20/22 06:30 Pulse Rate 125 H Respiratory Rate Blood Pressure 130/103 H 143/84 H Pulse Oximetry 97 Oxygen Delivery Method Oxygen Flow Rate Fraction of Inspired Oxygen 06/20/22 06:36 06/20/22 07:00 06/20/22 07:01 Pulse Rate 117 H Respiratory Rate Blood Pressure 124/60 Pulse Oximetry 100 Oxygen Delivery Method High Flow Nasal Cannula Oxygen Flow Rate 35 Fraction of Inspired Oxygen 75 06/20/22 07:01 06/20/22 07:30 06/20/22 07:30 Pulse Rate 131 H 123 H Respiratory Rate Blood Pressure 126/78 Pulse Oximetry 100 99 Oxygen Delivery Method High Flow Nasal Cannula Oxygen Flow Rate 35 Fraction of Inspired Oxygen 06/20/22 08:00 06/20/22 08:01 06/20/22 08:01 Pulse Rate 127 H 125 H Respiratory Rate Blood Pressure 114/72 Pulse Oximetry 100 96 Oxygen Delivery Method High Flow Nasal Cannula High Flow Nasal Cannula Oxygen Flow Rate 35 35 Fraction of Inspired Oxygen 06/20/22 08:45 Pulse Rate 126 H Respiratory Rate 28 H Blood Pressure 159/74 H Pulse Oximetry 96 Oxygen Delivery Method Oxygen Flow Rate Fraction of Inspired Oxygen Fraction of Inspired Oxygen 75 SaO2/FiO2 Ratio 129 Oxygen Delivery Method High Flow Nasal Cannula Oxygen Flow Rate 35 Narrative Exam Narrative: Gen: appears uncomfortable in bed frequently fidgeting around, SOB, speaking 1-2 words at a time, nasal flaring CV: RRR, no murmurs Resp: minimal air movement, expiratory wheezes in all lung costa where air is moving, no crackles Abd: soft, nontender, nondistended, normoactive bowel sounds Ext: no edema Neuro: no gross deficits Objective Labs Result Diagrams: 06/19/22 23:00 06/19/22 23:00 Labs: Laboratory Results - last 24 hr 06/19/22 06/19/22 06/19/22 22:10 23:00 23:00 WBC 7.8 RBC 4.26 Hgb 13.0 Hct 38.6 MCV 90.5 MCH 30.6 MCHC 33.8 RDW 13.5 Plt Count 266 Neut % (Auto) 67.8 Lymph % (Auto) 16.4 L Pickett % (Auto) 10.1 Eos % (Auto) 5.3 H Baso % (Auto) 0.4 Neut # (Auto) 5300 Lymph # (Auto) 1300 [place]ett # (Auto) 800 Eos # (Auto) 400 Baso # (Auto) 0 D-Dimer Sodium 140 Potassium 3.4 Chloride 105 Carbon Dioxide 24 BUN 10 Creatinine 0.68 Estimated GFR > 60 BUN/Creatinine Ratio 14.7 Glucose 137 H Calcium 9.2 Magnesium Total Bilirubin 0.5 AST 28 ALT 36 H Alkaline Phosphatase 65 Total Creatine Kinase CK-MB (CK-2) CK-MB (CK-2) Rel Index Troponin I NT-Pro-B Natriuret Pep Total Protein 8.4 H Albumin 4.6 Globulin 3.8 Albumin/Globulin Ratio 1.2 Procalcitonin Serum , Qual SARS-CoV-2 (PCR) Negative Influenza A (RT-PCR) Influenza B (RT-PCR) RSV (PCR) 06/19/22 06/19/22 06/20/22 23:00 23:05 02:48 WBC RBC Hgb Hct MCV MCH MCHC RDW Plt Count Neut % (Auto) Lymph % (Auto) Pickett % (Auto) Eos % (Auto) Baso % (Auto) Neut # (Auto) Lymph # (Auto) Pickett # (Auto) Eos # (Auto) Baso # (Auto) D-Dimer Sodium Potassium Chloride Carbon Dioxide BUN Creatinine Estimated GFR BUN/Creatinine Ratio Glucose Calcium Magnesium Total Bilirubin AST ALT Alkaline Phosphatase Total Creatine Kinase 113 CK-MB (CK-2) 0.93 CK-MB (CK-2) Rel Index 0.8 L Troponin I < 0.012 NT-Pro-B Natriuret Pep 26 Total Protein Albumin Globulin Albumin/Globulin Ratio Procalcitonin Serum , Qual Negative SARS-CoV-2 (PCR) Negative Influenza A (RT-PCR) Flu a negative Influenza B (RT-PCR) Flu b negative RSV (PCR) Negative 06/20/22 06/20/22 06/20/22 02:48 02:48 04:05 WBC RBC Hgb Hct MCV MCH MCHC RDW Plt Count Neut % (Auto) Lymph % (Auto) Pickett % (Auto) Eos % (Auto) Baso % (Auto) Neut # (Auto) Lymph # (Auto) Pickett # (Auto) Eos # (Auto) Baso # (Auto) D-Dimer 964 H Sodium Potassium Chloride Carbon Dioxide BUN Creatinine Estimated GFR BUN/Creatinine Ratio Glucose Calcium Magnesium 1.8 Total Bilirubin AST ALT Alkaline Phosphatase Total Creatine Kinase CK-MB (CK-2) CK-MB (CK-2) Rel Index Troponin I NT-Pro-B Natriuret Pep Total Protein Albumin Globulin Albumin/Globulin Ratio Procalcitonin 0.04 Serum , Qual SARS-CoV-2 (PCR) Influenza A (RT-PCR) Influenza B (RT-PCR) RSV (PCR) Assessment & Plan Assessment & Plan narrative: Pt is a 27yo woman with asthma, 2 months after uncomplicated , who presented with wheezing and SOB, found to have an acute asthma exacerbation. 1) Asthma exacerbation: Currently on 4L of heated high flow at 55%. Does appear to still be acutely SOB with limited air movement. Discussed potential BiPAP, which the pt is agreeable to if needed. - RT consulted, appreciate ongoing care - Tele-ICU consulted - Recommend Echocardiogram - Goal net negative fluid balance, IV Lasix if needed - Methylprednisolone 60mg BID - Albuterol and Ipratropium nebulizers scheduled and PRN frequently as per RT. Okay for continuous nebulizer if needed. - Low threshold for transition to BiPAP - Ativan PRN for anxiety management 2) : - Breastpumping/feeding as per patient's goals. Okay to feed infant breastmilk with current medications being administered. - Start vitamin once pt tolerating PO well DVT ppx: Lovenox Code: Full FEN: General diet if tolerated Dispo: Pending improvement in respiratory status. Anticipate multiple day stay due to severity of exacerbation. Time Spent With Patient Critical Care time: I spent a total of [] minutes of critical care time on this patient's care today; this time is exclusive of procedural time.
[2022-06-20] MEDS: methylPREDNISolone 125 MG/2 ML VIAL 60 MG IV ×2 (09:14→20:54)
--- NOTE | 2022-06-20 09:49 | PM.CN.EICU ---
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 Patient Location: ICU Provider location (State): Other participants/roles: RN,RT Narrative: 27yo woman with asthma, 2 months after uncomplicated , who presented with wheezing and SOB, placed on HFNC 40 L / 52% Assessment: Asthma exacerbation Recommend: Continue HFNC 40 L / 52%, wean off as tolerated for Sat goal of 92 Increase IV solumedrol to 60 mg bid Albuterol nebs prn and Scheduled Daily I/o, goal neg balance, IV Lasix as needed Check 2 D echo Lovenox for DVT ppx PPI for GI prophylaxis CCT 35 min PFSH Surgical History History of repair of ACL Social History marital status: unmarried,living together number of children: 0 household members: significant other lives independently: Yes caregiver/support person: No housing: house education level: college occupational status: employed Smoking Status: Never smoker Current Medications Current Medications Medications: Home Medications albuterol sulfate 90 mcg/actuation aerosol inhaler (ProAir HFA) 1 puff inhalation PRN PRN Wheezing 04/02/22 [History Confirmed 06/20/22] Exam Vital Signs (past 8 hours): - 06/20/22 02:00 06/20/22 02:30 06/20/22 05:14 Temperature Pulse Rate 116 H 118 H Respiratory Rate Blood Pressure Pulse Oximetry 91 98 97 Oxygen Delivery Method High Flow Nasal Cannula Oxygen Flow Rate 50 Fraction of Inspired Oxygen 75 06/20/22 03:00 06/20/22 03:30 06/20/22 04:00 Temperature Pulse Rate 136 H 124 H 124 H Respiratory Rate Blood Pressure Pulse Oximetry 99 94 91 Oxygen Delivery Method Oxygen Flow Rate Fraction of Inspired Oxygen 06/20/22 04:30 06/20/22 05:06 06/20/22 05:10 Temperature Pulse Rate 104 H 132 H Respiratory Rate Blood Pressure 135/65 Pulse Oximetry 93 91 Oxygen Delivery Method Oxygen Flow Rate Fraction of Inspired Oxygen 06/20/22 05:10 06/20/22 05:30 06/20/22 05:30 Temperature Pulse Rate 123 H 125 H Respiratory Rate Blood Pressure 145/76 H Pulse Oximetry 96 97 Oxygen Delivery Method Oxygen Flow Rate Fraction of Inspired Oxygen 06/20/22 06:00 06/20/22 06:01 06/20/22 06:01 Temperature Pulse Rate 124 H 118 H Respiratory Rate Blood Pressure 130/103 H Pulse Oximetry 98 97 Oxygen Delivery Method Oxygen Flow Rate Fraction of Inspired Oxygen 06/20/22 06:30 06/20/22 06:30 06/20/22 06:36 Temperature Pulse Rate 125 H Respiratory Rate Blood Pressure 143/84 H Pulse Oximetry 97 Oxygen Delivery Method High Flow Nasal Cannula Oxygen Flow Rate 35 Fraction of Inspired Oxygen 75 06/20/22 07:00 06/20/22 07:01 06/20/22 07:01 Temperature Pulse Rate 117 H 131 H Respiratory Rate Blood Pressure 124/60 Pulse Oximetry 100 100 Oxygen Delivery Method Oxygen Flow Rate Fraction of Inspired Oxygen 06/20/22 07:30 06/20/22 07:30 06/20/22 08:00 Temperature Pulse Rate 123 H 127 H Respiratory Rate Blood Pressure 126/78 Pulse Oximetry 99 100 Oxygen Delivery Method High Flow Nasal Cannula High Flow Nasal Cannula Oxygen Flow Rate 35 35 Fraction of Inspired Oxygen 06/20/22 08:01 06/20/22 08:01 06/20/22 08:45 Temperature Pulse Rate 125 H 126 H Respiratory Rate 28 H Blood Pressure 114/72 159/74 H Pulse Oximetry 96 96 Oxygen Delivery Method High Flow Nasal Cannula Oxygen Flow Rate 35 Fraction of Inspired Oxygen 06/20/22 08:20 06/20/22 06:42 Temperature 98.2 F Pulse Rate 130 H Respiratory Rate 22 Blood Pressure 101/64 Pulse Oximetry 97 Oxygen Delivery Method Heated High Flow Oxygen Flow Rate 40 Fraction of Inspired Oxygen 50 Fraction of Inspired Oxygen 50 SaO2/FiO2 Ratio 129 Oxygen Delivery Method High Flow Nasal Cannula Oxygen Flow Rate 40 Objective Labs Result Diagrams: 06/19/22 23:00 06/19/22 23:00 Labs: Laboratory Results - last 24 hr 06/19/22 06/19/22 06/19/22 22:10 23:00 23:00 WBC 7.8 RBC 4.26 Hgb 13.0 Hct 38.6 MCV 90.5 MCH 30.6 MCHC 33.8 RDW 13.5 Plt Count 266 Neut % (Auto) 67.8 Lymph % (Auto) 16.4 L [place] % (Auto) 10.1 Eos % (Auto) 5.3 H Baso % (Auto) 0.4 Neut # (Auto) 5300 Lymph # (Auto) 1300 [place] # (Auto) 800 Eos # (Auto) 400 Baso # (Auto) 0 D-Dimer Sodium 140 Potassium 3.4 Chloride 105 Carbon Dioxide 24 BUN 10 Creatinine 0.68 Estimated GFR > 60 BUN/Creatinine Ratio 14.7 Glucose 137 H Calcium 9.2 Magnesium Total Bilirubin 0.5 AST 28 ALT 36 H Alkaline Phosphatase 65 Total Creatine Kinase CK-MB (CK-2) CK-MB (CK-2) Rel Index Troponin I NT-Pro-B Natriuret Pep Total Protein 8.4 H Albumin 4.6 Globulin 3.8 Albumin/Globulin Ratio 1.2 Procalcitonin Serum , Qual SARS-CoV-2 (PCR) Negative Influenza A (RT-PCR) Influenza B (RT-PCR) RSV (PCR) 06/19/22 06/19/22 06/20/22 23:00 23:05 02:48 WBC RBC Hgb Hct MCV MCH MCHC RDW Plt Count Neut % (Auto) Lymph % (Auto) [place] % (Auto) Eos % (Auto) Baso % (Auto) Neut # (Auto) Lymph # (Auto) [place] # (Auto) Eos # (Auto) Baso # (Auto) D-Dimer Sodium Potassium Chloride Carbon Dioxide BUN Creatinine Estimated GFR BUN/Creatinine Ratio Glucose Calcium Magnesium Total Bilirubin AST ALT Alkaline Phosphatase Total Creatine Kinase 113 CK-MB (CK-2) 0.93 CK-MB (CK-2) Rel Index 0.8 L Troponin I < 0.012 NT-Pro-B Natriuret Pep 26 Total Protein Albumin Globulin Albumin/Globulin Ratio Procalcitonin Serum , Qual Negative SARS-CoV-2 (PCR) Negative Influenza A (RT-PCR) Flu a negative Influenza B (RT-PCR) Flu b negative RSV (PCR) Negative 06/20/22 06/20/22 06/20/22 02:48 02:48 04:05 WBC RBC Hgb Hct MCV MCH MCHC RDW Plt Count Neut % (Auto) Lymph % (Auto) [place] % (Auto) Eos % (Auto) Baso % (Auto) Neut # (Auto) Lymph # (Auto) [place] # (Auto) Eos # (Auto) Baso # (Auto) D-Dimer 964 H Sodium Potassium Chloride Carbon Dioxide BUN Creatinine Estimated GFR BUN/Creatinine Ratio Glucose Calcium Magnesium 1.8 Total Bilirubin AST ALT Alkaline Phosphatase Total Creatine Kinase CK-MB (CK-2) CK-MB (CK-2) Rel Index Troponin I NT-Pro-B Natriuret Pep Total Protein Albumin Globulin Albumin/Globulin Ratio Procalcitonin 0.04 Serum , Qual SARS-CoV-2 (PCR) Influenza A (RT-PCR) Influenza B (RT-PCR) RSV (PCR) Assessment & Plan Time Spent With Patient Critical Care time: I spent a total of [] minutes of critical care time on this patient's care today; this time is exclusive of procedural time.
--- NOTE | 2022-06-20 10:23 | DI.ECHO.S_ITS ---
[facility]---------+ [facility] +---------+ : : [address] : : : : [id number] : : : : Phone: [phone] Echocardiogram Report + + :Name: MALIA MARCH Study Date: 06/21/2022 Height: 65 in : :[facility] ReadingLocation: Weight: 170 lb : : Gender: Female BSA: 1.8 m2 : :: 1995 Age: 27 yrs BP: 113/61 mmHg: :Reason For Study: SHORTNESS OF BREATH, POST : :Ordering Physician: KIHA, : :KATY Performed By: Shona Valdez : :Referring: KATY DUPONT : + + Interpretation Summary Normal echo study. Procedure: A two-dimensional transthoracic echocardiogram with color flow and Doppler was performed. The study quality was technically adequate. There is no prior echocardiogram noted for this patient. The patient was in sinus rhythm with heart rates between 62-78 bpm during the exam. Left Ventricle: The left ventricle is normal in size and wall thickness. The ejection fraction is estimated to be 60-65%. Left ventricular wall motion is normal. Diastolic parameters suggest probable normal left ventricular diastolic function and normal filling pressures. Right Ventricle: The right ventricle is normal in size and function. Atria: The left atrial size is normal. Right atrial size is normal. There is no Doppler evidence for an interatrial shunt. Mitral Valve: The mitral valve is normal in structure and function. There is trace mitral regurgitation. Aortic Valve: The aortic valve is trileaflet. The aortic valve opens well. There is no aortic valve stenosis. No aortic regurgitation is present. Tricuspid Valve: The tricuspid valve is normal in structure and function. There is trace tricuspid regurgitation. Pulmonic Valve: The pulmonic valve is not well seen, but is grossly normal. There is trace pulmonic regurgitation. Great Vessels: The aortic root is normal size. The ascending aorta could not be visualized. The IVC is of normal diameter and collapses greater than 50% with a sniff. This suggests a low right atrial pressure of 3 mm Hg. Pericardium/ Pleura There is no pericardial effusion. There is no pleural effusion. MMode/2D Measurements & Calculations LVIDd: 5.1 cm LVOT diam: 2.4 cm LVIDs: 3.2 cm Ao root diam: 3.2 cm FS: 38.5 % Ao Arch Diam (Prox Trans): 2.6 cm IVSd: 0.68 cm LVPWd: 0.63 cm LV andrews. diameter/BSA (cm/m^2): 2.8 LV sys. diameter/BSA (cm/m^2): 1.7 LA A2 area: 17.8 cm2 RA long axis: 4.3 cm LA A4 area: 13.3 cm2 RA area: 13.6 cm2 LA length (vol): 4.5 cm RA vol: 36.2 ml LA vol: 44.2 ml RA : 19.6 ml/m2 LA vol index: 24.0 ml/m2 IVC diam: 1.9 cm RVD1 (basal): 3.2 cm RVD2 (mid): 2.5 cm TAPSE: 2.5 cm Doppler Measurements & Calculations Ao V2 max: 111.6 cm/sec LVOT Max Nick: 99.7 cm/sec Ao V2 mean: 73.5 cm/sec LV V1 max P.0 mmHg Ao max P.0 mmHg LV V1 VTI: 20.4 cm Ao mean P.5 mmHg ARRON(I,D): 4.1 cm2 Ao V2 VTI: 21.5 cm ARRON(V,D): 3.9 cm2 sev ratio: 0.95 ARRON indexed to BSA (cm^2/m^2): 2.2 MV E max nick: 79.9 cm/sec PA V2 max: 89.0 cm/sec MV A max nick: 64.7 cm/sec PA V2 mean: 60.4 cm/sec MV E/A: 1.2 PA mean P.7 mmHg Med Peak E' Nick: 12.8 cm/sec PA pr(Accel): 12.2 mmHg E/E' med: 6.2 Lat Peak E' Nick: 12.9 cm/sec E/E' lat: 6.2 E/e' average: 6.2 MV dec time: 0.19 sec SV(LVOT): 89.2 ml Electronically signed by: Berta Velazquez on Reading Physician:06/21/2022 09:06 AM
[2022-06-20] MEDS: IPRATROPIUM 0.5 MG/2.5 ML NEB INH ×4 (12:06→23:04)
--- NOTE | 2022-06-20 12:59 | CM.DANOTE ---
Patient is a 27 yo female who was admitted on 06/20/22 today for Asthma exacerbation. Pt has JOHNNIE EVANS and [employer] for insurance and her PCP is Jaimee Pool. EMR was reviewed. Per MD, pt with asthma at baseline but no admissions or intubations before and currently on HHFNC for oxygen needs. Pt not yet medically stable to d/c and may need a couple days admission for tx. No identified barriers to discharge and likely no d/c needs once stable. SW met briefly bedside with pt and explained role and she confirms she lives in [place] with her shon Diego and their 2 mo baby boy. 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 Pt is currently pumping as she has been breast feeding her . Pt does not anticipate any needs at d/c and preference is home via Sig Other POV when stable. Plan: SW to follow for plan of home via POV when medically stable in 1-2 days pending progress and oxygen needs. LUKASZ Stewart Discharge Planning/Care Management CM Discharge Assessment Start: 06/20/22 12:45 Freq: Status: Active Protocol: Document 06/20/22 12:45 BF (Rec: 06/20/22 12:59 BF [id number]) Discharge Planning Assessment Assigned Patient Scheduler LUKASZ Mosher DPOA/Assigned Designee Name informally shon Brennan Contact Information [phone] Advance Directives? No Advance Directives on File No History Provided By Patient,Medical Record Has Patient been admitted in last 30 No days? Prior Living Arrangements House Household Members significant other,children Type of transporation used prior to Drives own vehicle admit Independent with ADL's Yes Is patient alert and oriented? Yes Caregiver for Another Yes: son Barriers to Discharge No Discharge Plan Home Transportation Arrangement Sig Other Referrals Initiated None needed Review Status In Process Please Provide Date Initial DC 06/20/22 Assessment Was Performed Next Review Type Continued Stay Review
[2022-06-20] MEDS: ACETAMINOPHEN 325 MG TABLET 650 MG PO (18:49)
--- NOTE | 2022-06-20 20:31 | PM.ICURNDS ---
- :: This patient was seen via real time interactive two-way audiovisual telecommunication. Note: Patient admitted for acute asthma exacerbation. Currently on HFNC 50/40%, solumedrol, atrovent, and albuiterol. Feeling better overall. Will continue current course of treatment. D/w RN at bedside.
--- NOTE | 2022-06-20 20:59 | PC.NURSE ---
Patient awake and states that she is feeling much better since she was admitted earlier today. Patient is able to speak in complete sentences, RR 28- 30. Patient states that pain in her chest has resolved since being given acetaminophen on day shift.
[2022-06-20] MEDS: SODIUM CHLORIDE 0.9% FLUSH 10 ML IV (23:11)
[2022-06-21] VITALS (18 sets, daily range): BP systolic 67–121; BP diastolic 48–72; PULSE 66–97; RESP 15–94; TEMP 36.4–36.9; O2SAT 92–100
[2022-06-21] MEDS: ALBUTEROL 2.5 MG/3 ML NEB (ADULT) INH ×4 (03:18→16:37)
[2022-06-21] MEDS: IPRATROPIUM 0.5 MG/2.5 ML NEB INH ×4 (03:18→16:36)
--- NOTE | 2022-06-21 09:06 | PM.PN.1 ---
Subjective Subjective Date Patient Seen: 06/21/22 Time Patient Seen: 08:30 Interval history: cc: asthma exacerbation breathing much better today still on hi flow but doesn't think she still needs it breathing easily no wheezing hungry for breakfast still pumping eager to go home when able Exam Vital Signs (past 8 hours): - 06/21/22 02:00 06/21/22 03:19 06/21/22 03:00 Temperature 97.5 F L Pulse Rate 82 71 Respiratory Rate 18 19 Blood Pressure 105/67 103/64 Pulse Oximetry 94 97 Oxygen Delivery Method Nasal Cannula Oxygen Flow Rate 50 50 50 Fraction of Inspired Oxygen 0.40 40 0.40 06/21/22 04:00 06/21/22 05:00 06/21/22 05:00 Temperature Pulse Rate 89 82 Respiratory Rate 21 19 Blood Pressure 121/69 107/66 Pulse Oximetry 97 97 Oxygen Delivery Method Heated High Flow Oxygen Flow Rate 50 50 Fraction of Inspired Oxygen 0.40 0.40 06/21/22 06:00 06/21/22 07:43 06/21/22 07:46 Temperature Pulse Rate 86 89 Respiratory Rate 20 Blood Pressure 101/69 113/60 Pulse Oximetry 96 100 Oxygen Delivery Method Heated High Flow Oxygen Flow Rate 50 50 Fraction of Inspired Oxygen 0.40 40 06/21/22 07:00 06/21/22 07:01 06/21/22 07:01 Temperature Pulse Rate 88 84 Respiratory Rate 35 H 45 H Blood Pressure 113/61 Pulse Oximetry 96 Oxygen Delivery Method Oxygen Flow Rate Fraction of Inspired Oxygen 06/21/22 07:30 06/21/22 08:00 06/21/22 08:00 Temperature Pulse Rate 66 90 Respiratory Rate 47 H 71 H Blood Pressure 112/70 Pulse Oximetry 100 97 Oxygen Delivery Method Oxygen Flow Rate Fraction of Inspired Oxygen 06/21/22 08:30 Temperature Pulse Rate 72 Respiratory Rate 94 H Blood Pressure Pulse Oximetry 100 Oxygen Delivery Method Oxygen Flow Rate Fraction of Inspired Oxygen Fraction of Inspired Oxygen 40 SaO2/FiO2 Ratio 232 Oxygen Delivery Method Heated High Flow Oxygen Flow Rate 50 Narrative Exam Narrative: cheerful laying in bed Const General: comfortable and well developed Resp Other: CTAB EWOB on hiflo Cardio Other: RRR s1/s2 GI Other: SNTND Neuro General: patient alert, patient awake, patient oriented x3 and CN's II-XI intact bilaterally Psych Mental Status: mental status grossly normal Objective Labs Result Diagrams: 06/19/22 23:00 06/19/22 23:00 Labs: Laboratory Results - last 24 hr 06/20/22 08:30 Nasal Screen MRSA (PCR) Negative for mrsa [facility] Surgical History History of repair of ACL Social History marital status: unmarried,living together number of children: 0 household members: significant other and children lives independently: Yes caregiver/support person: No housing: house education level: college occupational status: employed Smoking Status: Never smoker Assessment & Plan Assessment & Plan narrative: 27yo woman with asthma exacerbation, nursing mother 2 months after uncomplicated , who presented with wheezing and SOB #Acute asthma exacerbation Improving presentation after a day on hiflow and iv steroids wheezing improved much less SOB this morning Appreciate tele ICU input Continue iv methylprednisolone 60mg BID Albuterol and Ipratropium nebulizers scheduled and PRN frequently as per RT.? Okay for continuous nebulizer if needed. Low threshold for transition to BiPAP Ativan PRN for anxiety management # state Breastpumping/feeding as per patient's goals.? Okay to feed infant breastmilk with current medications being administered. Resume vitamin DVT ppx:? Lovenox Code:? Full FEN:? General diet if tolerated Dispo:? Home when tolerating RA and PO steroids Time Spent With Patient Critical Care time: I spent a total of [] minutes of critical care time on this patient's care today; this time is exclusive of procedural time.
--- NOTE | 2022-06-21 09:41 | PM.PN.EICU ---
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 On HFNC 45/30%. Subjectively patient reports feeling better overall. Current Medications Current Medications Medications: Home Medications albuterol sulfate 90 mcg/actuation aerosol inhaler (ProAir HFA) 1 puff inhalation PRN PRN Wheezing 04/02/22 [History Confirmed 06/20/22] Visit Medications (administered) Generic Name Dose Route Start Last Admin Trade Name Freq PRN Reason Stop Dose Admin Acetaminophen 650 mg 06/20/22 09:10 06/20/22 18:49 Acetaminophen 325 Mg Tablet PO 650 mg Q6H PRN Administration Fever/Mild Pain (1-3) Albuterol 2.5 mg 06/20/22 09:02 06/21/22 03:18 Albuterol 2.5 Mg/3 Ml Neb (Adult) INH 2.5 mg [id number] PRN Administration Shortness Of Breath Albuterol 2.5 mg 06/20/22 11:00 06/21/22 07:41 Albuterol 2.5 Mg/3 Ml Neb (Adult) INH 2.5 mg [id number] NORMAN Administration Ipratropium [place] 0.5 mg 06/20/22 11:00 06/21/22 07:41 Ipratropium 0.5 Mg/2.5 Ml Neb INH 0.5 mg [id number] NORMAN Administration Lorazepam 0.5 mg 06/20/22 10:55 06/20/22 23:11 Lorazepam 2 Mg/Ml Inj IV 0.5 mg Q4HR PRN Administration Anxiety Methylprednisolone 60 mg 06/20/22 21:00 06/20/22 20:54 Methylprednisolone 125 Mg/2 Ml Vial IV 60 mg BID NORMAN Administration Sodium Chloride 10 ml 06/20/22 21:14 06/20/22 23:11 Sodium Chloride 0.9% Flush IV 10 ml PRN PRN Administration Flush Objective Labs Result Diagrams: 06/19/22 23:00 06/19/22 23:00 Labs: Laboratory Results - last 24 hr 06/20/22 08:30 Nasal Screen MRSA (PCR) Negative for mrsa Exam Vital Signs (past 8 hours): - 06/21/22 02:00 06/21/22 03:19 06/21/22 03:00 Temperature 97.5 F L Pulse Rate 82 71 Respiratory Rate 18 19 Blood Pressure 105/67 103/64 Pulse Oximetry 94 97 Oxygen Delivery Method Nasal Cannula Oxygen Flow Rate 50 50 50 Fraction of Inspired Oxygen 0.40 40 0.40 06/21/22 04:00 06/21/22 05:00 06/21/22 05:00 Temperature Pulse Rate 89 82 Respiratory Rate 21 19 Blood Pressure 121/69 107/66 Pulse Oximetry 97 97 Oxygen Delivery Method Heated High Flow Oxygen Flow Rate 50 50 Fraction of Inspired Oxygen 0.40 0.40 06/21/22 06:00 06/21/22 07:43 06/21/22 07:46 Temperature Pulse Rate 86 89 Respiratory Rate 20 Blood Pressure 101/69 113/60 Pulse Oximetry 96 100 Oxygen Delivery Method Heated High Flow Oxygen Flow Rate 50 50 Fraction of Inspired Oxygen 0.40 40 06/21/22 07:00 06/21/22 07:01 06/21/22 07:01 Temperature Pulse Rate 88 84 Respiratory Rate 35 H 45 H Blood Pressure 113/61 Pulse Oximetry 96 Oxygen Delivery Method Oxygen Flow Rate Fraction of Inspired Oxygen 06/21/22 07:30 06/21/22 08:00 06/21/22 08:00 Temperature Pulse Rate 66 90 Respiratory Rate 47 H 71 H Blood Pressure 112/70 Pulse Oximetry 100 97 Oxygen Delivery Method Oxygen Flow Rate Fraction of Inspired Oxygen 06/21/22 08:30 06/21/22 09:00 Temperature Pulse Rate 72 Respiratory Rate 94 H Blood Pressure Pulse Oximetry 100 Oxygen Delivery Method Heated High Flow Oxygen Flow Rate Fraction of Inspired Oxygen Fraction of Inspired Oxygen 40 SaO2/FiO2 Ratio 232 Oxygen Delivery Method Heated High Flow Oxygen Flow Rate 50 Narrative Exam Narrative: Not in distress. Speaking in full sentence. Assessment & Plan Assessment & Plan narrative: NEURO: -- Encourage early mobility RESP: # Acute hypoxemia respiratory failure -- Secondary to acute asthma exacerbation -- Improving slowly -- Recommend switching over to NC -- Encoruage IS and OOB as tolerated -- Goal SpO2 > 88% -- Needs a 6 minute walk test # Acute asthma exacerbation -- Will switch solumedrol to prednisone X 5 days -- On duoneb and albuterol -- Added pulmicort -- Added singulair 10 mg daily -- Recommend adding LABA/ICS upon hospital discharge -- Needs outpatient follow up with pulmonary -- If exacerbation recur then will need to be assess for anti-IL5 candidacy ENDO: -- Goal BS < 180 D/w pharmacist and RN at bedside. Time Spent With Patient Time with patient: less than 30 minutes Critical Care time: I spent a total of [] minutes of critical care time on this patient's care today; this time is exclusive of procedural time.
[2022-06-21] MEDS: ENOXAPARIN 40 MG/0.4 ML SYRINGE SUBCUT (10:14)
[2022-06-21] MEDS: MONTELUKAST 10 MG TABLET PO (10:14)
[2022-06-21] MEDS: SODIUM CHLORIDE 0.9% FLUSH 10 ML IV (10:15)
[2022-06-21] MEDS: PRENATAL VIT,CALC/IRON/FOLIC 1 TABLET 1 TAB PO (10:17)
--- NOTE | 2022-06-21 16:41 | PM.DS.1 ---
History of Present Illness History of Present Illness Date Patient Seen: 06/21/22 Time Patient Seen: 12:00 Chief complaint: Asthma Narrative: doing better throughout the day, able to remove supplemental oxygen and ambulate on room air without desatting feels better ready to go home. 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 Cardenas did well with initial stabilization on iv steroids and high flow oxygen and was able to transition to NC and RA basically within 24 hours. eating walking feeling better. Status at Discharge Cognitive/behavioral status at discharge: at baseline, oriented Functional status at discharge: independent ambulation Overall status at discharge: patient is back to baseline Exam Vital Signs (past 8 hours): - 06/21/22 09:00 06/21/22 09:00 06/21/22 09:01 Temperature Pulse Rate 93 H Respiratory Rate 15 Blood Pressure 67/48 L Pulse Oximetry 98 Oxygen Delivery Method Heated High Flow Oxygen Flow Rate Fraction of Inspired Oxygen 06/21/22 09:01 06/21/22 09:30 06/21/22 10:00 Temperature Pulse Rate 94 H 83 85 Respiratory Rate 18 26 H 34 H Blood Pressure Pulse Oximetry 97 95 96 Oxygen Delivery Method Oxygen Flow Rate Fraction of Inspired Oxygen 06/21/22 12:23 06/21/22 13:00 06/21/22 13:05 Temperature 98.4 F Pulse Rate 91 H Respiratory Rate Blood Pressure 119/69 Pulse Oximetry 97 Oxygen Delivery Method Room Air Room Air Oxygen Flow Rate 0 Fraction of Inspired Oxygen 94 Fraction of Inspired Oxygen 94 SaO2/FiO2 Ratio 232 Oxygen Delivery Method Room Air Oxygen Flow Rate 0 Const General: comfortable and well developed HENMT Head: normal to inspection, normocephalic and atraumatic Resp Effort & Inspection: normal respiratory effort and able to speak in complete sentences Auscultation: clear to auscultation bilaterally Cardio Rate: regular rate Rhythm: regular rhythm GI Palpation: soft Auscultation: normal bowel sounds Skin General: no rashes or lesions noted Extrem General: normal to inspection, full ROM and no pedal edema Psych Appearance: grossly normal Mental Status: mental status grossly normal Objective Labs Result Diagrams: 06/19/22 23:00 06/19/22 23:00 [facility] Surgical History History of repair of ACL Social History marital status: unmarried,living together number of children: 0 household members: significant other and children lives independently: Yes caregiver/support person: No housing: house education level: college occupational status: employed Smoking Status: Never smoker Discharge Assessment & Plan Assessment and Plan Assessment: 27yo woman with asthma exacerbation, nursing mother 2 months after uncomplicated , who presented with wheezing and SOB #Acute asthma exacerbation Improved after a day on hiflow and iv steroids got iv methylprednisolone will get outpatient prednisone taper will continue with advair and montelukast on d/c f/u in office within a week # state Breastpumping/feeding as per patient's goals.? Okay to feed breastmilk with current medications being administered. Resume vitamin dispo: home to f/u with PCP code: full diet: regular MDM: Discharge Plan Discharge Plan Patient Disposition: Home Discharge orders & Medications Prescriptions: New montelukast 10 mg Tablet 10 mg PO DAILY Qty: 30 0RF fluticasone propion-salmeterol [Advair Diskus] 250-50 mcg/dose blister with device 1 inh inhalation BID Qty: 60 0RF prednisone 20 mg tablet 60 mg PO DAILY Qty: 15 0RF Rx Instructions: take 3 tablets a day for three days, then 2 tablets a day for two days, then 1 tablet per day for two days, Continued albuterol sulfate [ProAir HFA] 90 mcg/actuation HFA aerosol inhaler 1 puff inhalation PRN PRN (Reason: Wheezing) Label Comments: inhale 2 puffs by mouth every 4 to 6 hours if needed FOR ASTHMA Follow up/Referrals: Jaimee Pool ARNP [Primary Care Provider] - Discharge Data Primary Care Provider: Jaimee Pool
== END 2022-06-21 17:15 | disposition home or self-care (01) | DRG 141 ==
LOC: ED 22:14 → ICU 06-20 07:19 → AC 07-12 14:47 → ICU 07-12 14:47
PROVIDERS: Admitting Provider Family Medicine; Emergency Provider Emergency Medicine; PCP Internal Medicine; Referring Provider Emergency Medicine; Visit Provider Family Medicine
DX: J96.01 Acute respiratory failure with hypoxia (principal); J45.901 Unspecified asthma with (acute) exacerbation; Z39.1 Encounter for care and examination of lactating mother; Z20.822 Contact with and (suspected) exposure to COVID-19
CPT/HCPCS: 0241U; 36415; 36600; 71045; 71275; 80053; 82550; 82553; 82805; 83735; 83880; 84145; 84484; 84703; 85025; 85379; 87635; 87797; 93306; 94640; 96365; 96372; 96375; 99223; 99284; C9803; G0378; J1650; J2060; J2930; J3475; J7613; Q9967

== ENCOUNTER → 2023-04-12 18:36 | Outpatient (ROUT) | payer OTHER, MEDICAID, SELFPAY ==
[2022-06-20 06:42] VITALS: BMI 28.3
[2023-04-12 18:46] LABS: Add Manual Diff / Slide Review NO; Basophils Absolute Auto 0 /uL (0-100); Basophils Percent Auto 0.2 % (0-2); Eosinophils Absolute Auto 200 /uL (0-450); Eosinophils Percent Auto 1.9 % (2-4); Hematocrit 37.1 % (36-46); Hemoglobin 12.6 g/dL (12.0-16.0); Lymphocytes Absolute Auto 1900 /uL (1100-4500); Lymphocytes Percent Auto 17.7 % (25-40); Mean Corpuscular HGB Conc 34.1 % (30-36); Mean Corpuscular Hemoglobin 31.5 PG (26-34); Mean Corpuscular Volume 92.4 fL (80-100); Monocytes Absolute Auto 700 /uL (0-900); Monocytes Percent Auto 6.9 % (3-14); Neutrophils Absolute Auto 7800 /uL (1500-7000); Neutrophils Percent Auto 73.3 % (50-75); Platelet Count 244 X10^3/uL (150-400); Red Blood Cell Count 4.01 X10^6/uL (4.0-5.2); Red Cell Distribution Width 13.1 % (11.6-14.8); White Blood Cell Count 10.6 X10^3/uL (4.5-11.0)
[2023-04-14 04:51] LABS: RPR Screen Non Reactive (Non Reactive)
[2023-04-14 12:48] LABS: Var-Zoster Immunity Screen 2210 index (Immune >165)
[2023-04-14 16:22] LABS: HIV 1 & 2 Ab/Ag 4th Gen Combo NEGATIVE (NEGATIVE)
== END ==
PROVIDERS: PCP Internal Medicine; Visit Provider Advanced Practice Midwife
DX: Z34.81 Encounter for supervision of other normal pregnancy, first trimester (principal)
CPT/HCPCS: 85025; 86592; 86762; 86787; 86850; 86900; 86901; 87086; 87389

== ENCOUNTER → 2023-06-17 16:19 | Outpatient (CLI) | payer OTHER, MEDICAID, SELFPAY ==
[2022-06-20 06:42] VITALS: BMI 28.3
--- NOTE | 2023-06-17 16:22 | DI.US.S_ITS ---
PROCEDURE: US OB >= 14 WEEKS FETUS INDICATIONS: 20 WEEK ANATOMY SCAN OUTSIDE/PRIOR DATING DATA: Last menstrual period (LMP): 01/26/2023. LMP-based estimated date of delivery (MEHRAN): 11/02/2023. The calculations are made using the clinical MEHRAN of 11/02/2023. TECHNIQUE: Real-time scanning was performed of the fetus, with image documentation and biometric measurements. Endovaginal scanning: Not performed COMPARISON: None. FINDINGS: General: A single living intrauterine gestation is present. Presentation: Vertex. Placenta: Placental position is anterior , without previa. Amniotic fluid index: 17 cm, normal range is 5-24 cm. Single deepest vertical pocket is 5.2 cm. heart rate: 143 beats per minute. Maternal cervical canal: 5.0 cm long. Normal lower limit is 2.5 cm. biometrics: Biparietal diameter: 5.0 cm, 21 weeks 2 days Head circumference: 18.1 cm, 20 weeks 4 days Abdominal circumference: 15.3 cm, 20 weeks 4 days Femur length: 3.5 cm, 21 weeks 0 days Clinically estimated gestational age: 20 weeks 2 days Composite gestational age from present scan: 20 weeks 6 days Estimated weight and percentile: 376 g, 76 percentile Anatomic survey: Neuro: Ventricles are non-dilated at less than 10 mm. Cisterna magna is normal at 3-11 mm. Cerebellum is normal in size and morphology. Nuchal skin fold: Normal at less than 6 mm between 14-21 weeks gestational age. Face: Nose and lips, facial profile are normal. Spine: No evidence for spina bifida. Heart: 4-chambered heart is present, with normal ventricular outflow tracts. Diaphragm: Diaphragm is intact. Stomach: Left-sided stomach is present. Kidneys: No hydronephrosis. Normal is less than 5 mm in 2nd trimester, less than 7 mm in 3rd trimester. Cord: 3-vessel cord has orthotopic insertion. Bladder: Normal in size. Extremities: All 4 extremities identified. IMPRESSION: 1. Single live intrauterine consistent with 20 weeks and 6 days. 2. Normal anatomic survey. We strive to produce accurate, complete, and clear reports of imaging services. To assist us in improving patient care, this report was composed using standard report templates and voice recognition software. Therefore, it may contain abnormal punctuation, insertions and/or omissions. Occasional wrong-word or sound-alike substitutions may occur. Though we review the report and make efforts to correct it, we do recommend that the report be read carefully in proper context to recognize any text inaccuracies. Dictated by: Tanner Castellano M.D. on 06/17/2023 at 20:40 Approved by: Tanner Castellano M.D. on 06/17/2023 at 20:43
== END ==
PROVIDERS: PCP Internal Medicine; Referring Provider Nurse Practitioner Obstetrics & Gynecology; Visit Provider Nurse Practitioner Obstetrics & Gynecology
DX: Z34.92 Encounter for supervision of normal pregnancy, unspecified, second trimester (principal); Z3A.20 20 weeks gestation of pregnancy
CPT/HCPCS: 76811

== ENCOUNTER 2023-11-08 02:10 | Inpatient (IN) | payer OTHER, MEDICAID, SELFPAY ==
[2023-09-12 11:39] VITALS: BMI 28.3
--- NOTE | 2023-11-08 02:30 | PM.OBHP.1 ---
OB HPI Date/Time Date of admission: 11/08/23 Date Patient Seen: 11/08/23 Time Patient Seen: 02:30 History of Present Condition Chief complaint: L&D : 4 Para: 1 Estimated Date of Delivery: 11/02/23 Estimated Gestational Age (weeks): 40w6d Narrative: Farheen Cardenas is a 28 year old female at 40w6d by LMP and confirmed by 9 week ultrasound. She has had care with CNMs complicated only by a step 3 asthma attack at 32 weeks when she received a course of oral prednisone and saw corrosion control specialist. She has a history of an unmedicated NSVB in April 2022. She is here tonight with report of contractions starting to be regular in the evening of 8 and gradually intensifying with possible ROM at 0150 of clear and bloody fluid. Baby moving well. Farheen desires low intervention ; declines routine IV, AMTSL and understands risks of both. She is here with her , Johnathon. Upon arrival, does not think her water broke all the way. History of Present care: good care, initiated at week # (9), number of visits (12) and pounds weight gain (24) Dating criteria: LMP confirmed by 1st trimester US Ultrasounds: normal 1st trimester US and normal mid trimester US Obstetrical complications: none Medical complications: respiratory (asthma attack) Preadmission Labs Blood type: O (+) positive -: Antibody screen: negative, Cystic fibrosis screen: negative, GBS status: negative, HBsAG: negative, HIV: negative, HSV 1: unknown, HSV 2: unknown and RPR/VDLR: negative -: Chlamydia screen: not detected and Gonorrhea screen: not detected -: Rubella: immune and Varicella: immune HCT: 32.9 HCAB: negative PAP: Normal Cell-free DNA: Normal x 3, XY 1 hr GTT: 69 Prior (ies) History: History of NSVB x 1, 2 TAB Evaluation Evaluation Baseline heart rate: 140 Variability: Moderate (11-25) monitor accelerations: Present Monitor Decelerations: Absent Contraction Frequency (minutes): 2 (2-3) Uterine Contraction Intensity: Strong/Firm Status: Category l Dilation (cm): 6 Effacement (%): 80 Dilation: >/=5 cm Effacement: >/=80% station: -2 Position of cervix: posterior Consistency: soft Tatum score: 9 Comments: Bulging bag of water noted on exam PFS Medical History Asthma exacerbation Surgical History History of repair of ACL Family History (Updated 11/08/23 @ 02:50 by Agata Huertas CNM, JULIÁN) Father Hypertension Depression Grandmother Cancer Social History (Updated 11/08/23 @ 02:50 by Agata Huertas CNM, JULIÁN) marital status: unmarried,living together number of children: 1 household members: significant other and children lives independently: Yes caregiver/support person: No housing: house education level: college occupational status: employed Smoking Status: Never smoker Meds Home Medications and Allergies Home Medications Medication Instructions Recorded Confirmed Type albuterol sulfate 90 mcg/actuation 1 puff inhalation PRN PRN Wheezing 04/02/22 09/14/23 History aerosol inhaler (ProAir HFA) prednisone 20 mg tablet 60 mg (3 x 20 mg) PO DAILY #15 tabs 06/21/22 Rx budesonide 0.5 mg/2 mL suspension 0.5 mg (2 mL) inhalation BID #120 09/14/23 09/14/23 Rx for nebulization mL albuterol sulfate 2.5 mg/3 mL 1.25 mg (1.5 mL) continuous 09/19/23 Rx (0.083 %) solution for nebulization nebulization Q4-6H PRN bronchospasm #180 mL Allergies Allergy/AdvReac Type Severity Reaction Status Date / Time cephalexin [From Keflex] AdvReac Verified 09/14/23 15:45 kiwi AdvReac Verified 09/14/23 15:45 Review of Systems Review of Systems Narrative: Negative except as mentioned in HPI. OB Exam Vital signs Blood Pressure: 125/84 Pulse Rate: 77 Respiratory Rate: 16 Temperature: 97.0 F Resp Effort & Inspection: normal respiratory effort and able to speak in complete sentences Auscultation: clear to auscultation bilaterally Cardio Rate: regular rate Rhythm: regular rhythm GI Inspection: normal to inspection and other (gravid uterus) Objective Labs 11/08/23 02:27 Assessment and Plan Assessment and Plan Assessment and Plan narrative: at 40w6e by LMP GBS neg Intact membranes FHR Cat 1 Active labor Admit to L&D. Reviewed risks of declined IV and AMTSL; plan for interventions as needed. Intermittent monitoring. Anticipate NSVB.
[2023-11-08 02:37] LABS: Add Manual Diff / Slide Review NO; Basophils Absolute Auto 100 /uL (0-100); Basophils Percent Auto 0.7 % (0-2); Eosinophils Absolute Auto 300 /uL (0-450); Eosinophils Percent Auto 2.8 % (2-4); Hematocrit 33.3 % (36-46); Hemoglobin 10.9 g/dL (12.0-16.0); Lymphocytes Absolute Auto 2400 /uL (1100-4500); Lymphocytes Percent Auto 20.2 % (25-40); Mean Corpuscular HGB Conc 32.8 % (30-36); Mean Corpuscular Hemoglobin 27.7 PG (26-34); Mean Corpuscular Volume 84.5 fL (80-100); Monocytes Absolute Auto 900 /uL (0-900); Monocytes Percent Auto 7.6 % (3-14); Neutrophils Absolute Auto 8100 /uL (1500-7000); Neutrophils Percent Auto 68.7 % (50-75); Platelet Count 200 X10^3/uL (150-400); Red Blood Cell Count 3.94 X10^6/uL (4.0-5.2); Red Cell Distribution Width 14.4 % (11.6-14.8); White Blood Cell Count 11.8 X10^3/uL (4.5-11.0)
[2023-11-08 02:51] VITALS: PULSE 77; RESP 16; TEMP 36.1
[2023-11-08 03:20] VITALS: BP 125/84
--- NOTE | 2023-11-08 07:09 | PM.OBPRVD ---
Labor & Delivery Delivery date: 11/08/23 Delivery monitor: external FHT Route of delivery: L&D Laceration Description: Perineal - 1st Degree Quantitative Blood Loss: 244 Anesthesia Type: None Narrative: Labor progressed well without any interventions. Farheen felt the spontaneous urge to push at 0503 and was found to be complete at 0517. She pushed effectively for an average 2nd stage. FHR was Category 2 throughout 2nd stage with moderate variability throughout but periods of decelerations down into the 70s. Intermittent monitoring until concern present, then continuous monitoring. Encouraged pushing due to low FHR, AROM of forebag with meconium stained amniotic fluid at 0625, so RT asked to come to delivery. Anterior cervix reduced which improved pushing efforts. NSVB of baby at 0641, with vertex OA and then spontaneous restitution to OP. Shoulders delivered with next contraction with maternal efforts and CNM traction. Baby was placed on maternal abdomen after drying and stimulation when Farheen was ready to receive him. Apgars 7/8. They remained skin to skin while cord was cut and placenta was delivered. Placenta delivered spontaneously with maternal efforts and appeared to be intact. 3 vessel cord clamped and cut by at 10 minutes of life after cord pulsing had stopped. Cord blood collected for blood typing. Perineum inspected and found to have hemostatic first degree perineal laceration. Blood loss measured and estimated loss is 244 mL. AMTSL refused by patient. Mom and baby left stable and is being initiated. Farheen and Johnathon are thrilled to meet their baby boy, Gabriel. Agata Huertas FUNERAL ARRANGER, CNM, IBCLC Baby 1: Infant gender: Male Presentation: vertex Position: Right Occiput Anterior Placenta delivery description: Spontaneous Cord Vessel Description: 3 Vessels score (1 min): 7 score (5 min): 8 weight: 4.374 kg Plan for aftercare: Routine care
[2023-11-08] MEDS: KETOROLAC 30 MG/ML VIAL IV (07:18)
[2023-11-08 07:41] VITALS: BP 145/85
[2023-11-08] MEDS: OXYTOCIN PREMIX 30 UNIT/500 ML PLAST..BAG 200 UNIT IV (08:37)
[2023-11-08] MEDS: IBUPROFEN 600 MG TABLET PO (14:28)
--- NOTE | 2023-11-08 18:58 | P.DS_ITS ---
Discharge Providers Provider Date of admission: 11/08/23 02:10 Discharge Date: 11/08/23 Primary care physician: JULIÁN Garcia Consults: 11/09/23 06:47 Consult to Car Sales Consultant Routine Comment: Discharge provider: Agata Huertas CNM, ARNP Summary Hospital Course Date Patient Seen: 11/08/23 Time Patient Seen: 18:58 Diagnoses: O80 Hospital Course: [place]en arrived in active labor, progressed to complete without intervention and had an NSVB of baby boy. QBL 379 mL. Normal course with early discharge home. Peripartum Data Infant Delivery Method: Natural Vaginal Laceration Description: Perineal - 1st Degree complications: none Discharge Diagnosis (1) Supervision of normal in third trimester: Status: Acute (2) First degree perineal laceration during delivery: Status: Acute (3) (normal spontaneous vaginal delivery): Status: Acute Status at Discharge Cognitive/behavioral status at discharge: oriented and calm Functional status at discharge: independent ambulation Overall status at discharge: patient is progressing back to baseline Time Spent with Patient Time attestation: Total time spent providing and/or coordinating discharge services: Time spent: Less than 30 minutes Specific discharge activities: discharge teaching Objective Labs 11/08/23 02:27 Labs: Laboratory Results - last 24 hr 11/08/23 02:27 WBC 11.8 H RBC 3.94 L Hgb 10.9 L Hct 33.3 L MCV 84.5 MCH 27.7 MCHC 32.8 RDW 14.4 Plt Count 200 Neut % (Auto) 68.7 Lymph % (Auto) 20.2 L [place] % (Auto) 7.6 Eos % (Auto) 2.8 Baso % (Auto) 0.7 Neut # (Auto) 8100 H Lymph # (Auto) 2400 [place] # (Auto) 900 Eos # (Auto) 300 Baso # (Auto) 100 Blood Type O Positive Antibody Screen Negative Antibody Identification Cancelled Exam Vital Signs (past 8 hours): BP 123/64 P 75 bpm RR 16/min T 98.8 F SpO2 98% Discharge Plan Discharge Plan Patient Disposition: Home Discharge orders & Medications Prescriptions: Continued albuterol sulfate 2.5 mg /3 mL (0.083 %) solution for nebulization 1.25 mg continuous nebulization Q4-6H PRN (Reason: bronchospasm) Qty: 180 3RF Patient Comments: inhale contents of 1 vial in nebulizer INTO THE LUNGS every 4 to ... (REFER TO PRESCRIPTION NOTES). albuterol sulfate [ProAir HFA] 90 mcg/actuation HFA aerosol inhaler 1 puff inhalation PRN PRN (Reason: Wheezing) Patient Comments: inhale 2 puffs by mouth every 4 to 6 hours if needed FOR ASTHMA budesonide 0.5 mg/2 mL suspension for nebulization 0.5 mg inhalation BID Qty: 120 5RF Discontinued prednisone 20 mg tablet 60 mg PO DAILY Qty: 15 0RF Rx Instructions: take 3 tablets a day for three days, then 2 tablets a day for two days, then 1 tablet per day for two days, Follow up/Referrals: Agata Huertas, ERVIN, [employer] [[employer]] - 1 Day ( visit tomorrow, 2 weeks and 6 weeks as scheduled; patient has e-mails. ) Diet/Activity/Treatments Diet: Diet as Tolerated Activity: low ross for at least 2 weeks Cold/Heat Therapy: as needed Skin/Wound/Dressing Care Report to your healthcare provider any signs of infection, such as:: chills, fever, unusual drainage and unusual redness Visit Report/Discharge Packet Stand Alone Forms: Discharge: Care, Patient Portal/API, Stroke Signs & Symptoms Discharge Data Primary Care Provider: Jaimee Pool
== END 2023-11-08 20:30 | disposition home or self-care (01) | DRG 560 ==
PROVIDERS: Admitting Provider Advanced Practice Midwife; PCP Internal Medicine; Referring Provider Advanced Practice Midwife; Visit Provider Advanced Practice Midwife
DX: O76 Abnormality in fetal heart rate and rhythm complicating labor and delivery (principal); Z3A.40 40 weeks gestation of pregnancy; Z37.0 Single live birth
CPT/HCPCS: 59050; 85025; 86850; 86900; 86901; G0379; J1885; J2590